=== PATIENT | female | born 1945 | race Two or more races ===

== ENCOUNTER 2018-10-09 23:09 | Emergency (ER) | payer OTHER ==
[~2018-10-09] VITALS: Ht 162.6 cm; Wt 61.2 kg
--- NOTE | 2018-10-09 23:15 | NUR ---
ED Nurse Note: Patient presents with complaints of recent fall and head trauma. Patient appears somewhat lethargic and unwilling to respond to questions.
[2018-10-09 23:33] VITALS: BP 135/94
--- NOTE | 2018-10-10 00:16 | NUR ---
ED Nurse Note: PATIENT SLEEPING COMFORTABLY.
--- NOTE | 2018-10-10 01:30 | NUR ---
ED Nurse Note: PATIENT SLEEPING, REPONSIVE TO TOUCH. PATIENT HAS NO S/S OF ACUTE DISTRESS.
--- NOTE | 2018-10-10 02:35 | Emergency Room Report ---
History of Present Illness General Chief Complaint: Head Injury Source: EMS Present Illness HPI Patient fell at her assisted living. Allegedly it was non-syncopal. She hit her head. She has a history of dementia and is unable to give further history. She will not answer if she has any pain. History of hypertension. History of dementia with cognitive impairment. Based on medications she is taking rifampin and pyridoxine. 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 Allergies: Coded Allergies: No Known Allergies (Unverified , 10/09/18) Patient History Limited by: medical condition Past Medical History: see triage record Social History: Denies: smoking, alcohol use, drug use Social History Narrative Assisted living Last Menstrual Period: Pt has no period anymore Now: No Reviewed Nursing Documentation: PMH: Agreed; PSxH: Agreed Nursing Documentation-PMH Hx Hypertension: Yes History Of Psychiatric Problem: Yes - Dementia Review of Systems All Other Systems: limited Physical Exam Vital Signs Date Time Temp Pulse Resp B/P (MAP) Pulse Ox O2 Delivery O2 Flow Rate FiO2 10/09/18 23:13 98.1 72 18 135/94 96 Room Air Sp02 EP Interpretation: reviewed, normal General Appearance: no apparent distress, alert, Chronically Ill Head: normocephalic, atraumatic Eyes: bilateral eye normal inspection, bilateral eye PERRL, bilateral eye EOMI ENT: hearing grossly normal, moist mucus membranes Neck: full range of motion, supple, no bony tend Respiratory: chest non-tender, lungs clear, normal breath sounds, no respiratory distress, speaking full sentences Cardiovascular #1: regular rate, rhythm Cardiovascular #2: 2+ radial (L) Gastrointestinal: normal inspection, non tender, soft Genitourinary: no CVA tenderness Musculoskeletal: back normal, digits/nails normal, normal range of motion, no calf tenderness, pelvis stable Neurologic: alert, motor strength/tone normal, DTRs symmetric, sensory intact, other - Not speaking Psychiatric: depressed affect Skin: no rash, other - No hematoma or lacerations Medical Decision Making Diagnostic Impression: Primary Impression: Acute head injury Qualified Codes: S09.90XA - Unspecified injury of head, initial encounter ER Course Patient presents after fall at assisted living. Differential includes head contusion, bleed, concussion amongst others. CT the head is indicated. She does not respond to having any other pain in her body. Her neck range of motion is full without any tenderness. CT of the head with involutional changes no bleed. Neurologic exam unchanged. Patient stable for outpatient observation and treatment. CT/MRI/US Diagnostic Results CT/MRI/US Diagnostic Results : Imaging Test Ordered: head Impression No intracranial pathology. Ethmoid sinusitis. Status: improved Disposition: ASSISTED LIVING Condition: Stable Scripts Acetaminophen (Tylenol) 325 Mg Tablet 650 MG ORAL Q6H PRN for Prn Pain/Headache/Temp > 101, #20 TAB 0 Refills Prov: Omero Richey MD 10/10/18 Referrals: NOT CHOSEN IPA/,REFERRING (PCP) Omero Richey MD Oct 10, 2018 02:35
[2018-10-10] MEDS ORDERED: TYLENOL325 MG ORAL (02:37)
[2018-10-10] MEDS ORDERED: NAMENDA10 MG ORAL (02:52)
[2018-10-10] MEDS ORDERED: OLANZAPINE2.5 MG ORAL (02:52)
[2018-10-10] MEDS ORDERED: RIFADIN300 MG ORAL (02:52)
[2018-10-10] MEDS ORDERED: DONEPEZIL HCL5 M2 ORAL (02:52)
[2018-10-10] MEDS ORDERED: NORVASC2.5 MG ORAL (02:52)
--- NOTE | 2018-10-10 02:57 | NUR ---
ED Nurse Note: PATIENT RESTING COMFORTABLY, NO S/S OF ACUTE DISTRESS. PATIENT IS SLEEPING.
[2018-10-10 02:59] VITALS: BP 135/94
--- NOTE | 2018-10-10 03:20 | NUR ---
ED Nurse Note: Sweetie cleared for discharge, awaiting transport back to facility ETA 0430.
--- NOTE | 2018-10-10 04:07 | NUR ---
ED Nurse Note: Report called to Maryse at [facility].
[2018-10-10 04:09] VITALS: BP 135/94
--- NOTE | 2018-10-10 11:28 | Diagnostic Imaging Report ---
Indications: Head trauma, altered level of consciousness Technique: Spiral acquisitions obtained through the brain. Angled axial and coronal 5 x 5 mm slices were reconstructed. Total dose length product 1284.6 mGycm. CTDI vol(s) 70.38 mGy. Dose reduction achieved using automated exposure control Comparison: None. Findings: There is age-related enlargement of the ventricles and extra-axial CSF spaces. No acute intracranial hemorrhage nor edema, mass effect, nor midline shift. Normal henao-white differentiation. Visualized orbits are unremarkable. There is minimal ethmoid sinus disease. The calvarium is intact Impression: Age-related volume loss Negative for acute intracranial bleed or mass effect Incidental finding ethmoid sinus disease This agrees with the preliminary interpretation provided overnight by [facility] teleradiology service. The CT scanner at [facility] is accredited by the [employer] and the scans are performed using protocols designed to limit radiation exposure to as low as reasonably achievable to attain images of sufficient resolution adequate for diagnostic evaluation.
[2018-10-10] MEDS ORDERED: ZYPREXA2.5 MG ORAL (20:25)
[2018-10-11] MEDS ORDERED: VITAMIN B-625 MG PO (05:35)
== END 2018-10-10 04:09 | disposition home or self-care (01) ==
LOC: EDBD 23:09 → EMR 23:27
DX: S09.90XA Unspecified injury of head, initial encounter (principal); W19.XXXA Unspecified fall, initial encounter; Y92.129 Unspecified place in nursing home as the place of occurrence of the external cause; I10 Essential (primary) hypertension; F03.90 Unspecified dementia, unspecified severity, without behavioral disturbance, psychotic disturbance, mood disturbance, and anxiety
CPT/HCPCS: 70450; 99284

== ENCOUNTER 2018-10-10 20:27 | Inpatient (IN) | payer OTHER ==
[~2018-10-10] VITALS: Ht 162.6 cm; Wt 50.6 kg
[~2018-10-10 20:27] MED LIST: DONEPEZIL HCL5 M2 ORAL; NAMENDA10 MG ORAL; NORVASC2.5 MG ORAL; OLANZAPINE2.5 MG ORAL; RIFADIN300 MG ORAL; TYLENOL325 MG ORAL; ZYPREXA2.5 MG ORAL
--- NOTE | 2018-10-10 20:30 | NUR ---
ED Nurse Note: pt brought in by ambulance for increased drowsiness from [facility], per daughter's statement, pt was here yesterday for s/p fall but noted pt more altered than usual. pt's daughter stated pt is normally awake and able to talk. pt AA&ox1, mexican speaking, skin warm and dry, resp even and unlabored on RA, noted increase lethargic, will cont monitor. -n/v/d. on bedrest.
--- NOTE | 2018-10-10 20:35 | NUR ---
ED Nurse Note: pt daughter states pt has also BLE (ankle) swelling since yesterday, states never had before, pt denies pain. no tenderness noted. noted swelling nonpitting Wong ankle. cms intact. cap refill <3sec, no sx injury, no open wound.
--- NOTE | 2018-10-10 21:07 | Emergency Room Report ---
History of Present Illness General Chief Complaint: General Complaint Source: Medical Record Present Illness HPI This is a 73-year-old female with history dementia. He presents with chief complaint altered mental status. Onset for about a week and getting worse. Sleepier. She was here yesterday for head injury. No nausea no vomiting. No fever or chills. No new trauma since yesterday. Yesterday she got out of bed and fell down on her knee and hit her head. There is no intracranial injury based on the CT scan yesterday. No other complaint. She is limited because of her dementia. History is from her daughter. Allergies: Coded Allergies: No Known Allergies (Unverified , 10/09/18) Patient History Past Medical History: see triage record, old chart reviewed Past Surgical History: other Pertinent Family History: none Social History: Denies: smoking Last Menstrual Period: n/a Now: No Immunizations: other Reviewed Nursing Documentation: PMH: Agreed; PSxH: Agreed Nursing Documentation-PMH Past Medical History: No History, Except For Hx Hypertension: Yes Review of Systems Constitutional: Reports: weakness Eye: Denies: eye pain, blurred vision ENT: Denies: ear pain, nose congestion, throat swelling Respiratory: Denies: cough, shortness of breath Cardiovascular: Denies: chest pain, palpitations Gastrointestinal: Denies: abdominal pain, diarrhea, nausea, vomiting Musculoskeletal: Denies: back pain, joint pain Skin: Denies: rash Neurological: Denies: headache, numbness Endocrine: Denies: increased thirst, increased urine Hematologic/Lymphatic: Denies: easy bruising All Other Systems: negative except mentioned in HPI Physical Exam Vital Signs Date Time Temp Pulse Resp B/P (MAP) Pulse Ox O2 Delivery O2 Flow Rate FiO2 10/10/18 20:18 97.3 70 18 114/66 98 Room Air vitals normal Sp02 EP Interpretation: reviewed, normal General Appearance: no apparent distress, alert, other - Weak appearing Head: normocephalic, atraumatic Eyes: bilateral eye PERRL, bilateral eye EOMI ENT: hearing grossly normal, normal pharynx Neck: full range of motion, supple, no meningismus Respiratory: chest non-tender, lungs clear, normal breath sounds Cardiovascular #1: regular rate, rhythm, no murmur Gastrointestinal: normal bowel sounds, non tender, no mass, no organomegaly, no bruit, non-distended Musculoskeletal: back normal, normal range of motion, swelling - Trace edema to the ankles Psychiatric: mood/affect normal Skin: warm/dry Medical Decision Making Diagnostic Impression: Primary Impression: Encephalopathy acute ER Course Patient with altered mental status. According to fpc, she's been more agitated. This may be worsening of her dementia. No evidence of infection. No evidence of delayed bleeding from her fall yesterday. Labs unremarkable. Urine showed no evidence of any infection. We'll admit versus transfer for further workup. Pt will be admitted here. I discussed case with Dr. Forrest who will admit. Lab Results Impression labs unremarkable CT/MRI/US Diagnostic Results CT/MRI/US Diagnostic Results : Imaging Test Ordered: CT head Impression no acute process per radiologist Last Vital Signs Date Time Temp Pulse Resp B/P (MAP) Pulse Ox O2 Delivery O2 Flow Rate FiO2 10/10/18 20:18 97.3 70 18 114/66 98 Room Air Status: unchanged Disposition: ADMITTED INPATIENT Condition: Serious Bautista Ward MD Oct 10, 2018 21:07
[2018-10-10 21:30] VITALS: BP 118/69
[2018-10-10 21:34] LABS: APPEARANCE,URINE CLEAR; BILIRUBIN, URINE NEGATIVE (NEGATIVE); GLUCOSE, URINE (UA) NEGATIVE (NEGATIVE); KETONES,URINE NEGATIVE (NEGATIVE); LEUKOCYTE ESTERASE ,URINE 1+ (NEGATIVE); NITRITE,URINE NEGATIVE (NEGATIVE); PH,URINE 6.5 (4.5-8.0); PROTEIN,URINE NEGATIVE (NEGATIVE); UROBILINOGEN,URINE NORMAL MG/DL (0.0-1.0)
[2018-10-10 21:35] LABS: EOSINOPHILS % (AUTO) 4.7 % (0.0-3.0); HEMATOCRIT 33.4 % (37.0-47.0); LYMPHOCYTES % (AUTO) 29.4 % (20.0-45.0); MEAN CORPUSCULAR VOLUME 89 FL (80-99); MONOCYTES % (AUTO) 10.6 % (1.0-10.0); NEUTROPHILS % (AUTO) 54.3 % (45.0-75.0); PLATELET COUNT 191 K/UL (150-450); RED BLOOD COUNT 3.76 M/UL (4.20-5.40); RED CELL DISTRIBUTION WIDTH 13.3 % (11.6-14.8); WHITE BLOOD COUNT 3.8 K/UL (4.8-10.8)
[2018-10-10 21:36] LABS: COLOR,URINE YELLOW
[2018-10-10 21:45] LABS: ANION GAP 8 mmol/L (5-15); BLOOD UREA NITROGEN 19 mg/dL (7-18); CALCIUM 8.6 MG/DL (8.5-10.1); CARBON DIOXIDE 26 MMOL/L (21-32); CHLORIDE 109 MMOL/L (98-107); CREATININE 0.6 MG/DL (0.55-1.30); POTASSIUM 3.8 MMOL/L (3.5-5.1); SODIUM 143 MMOL/L (136-145)
--- NOTE | 2018-10-10 21:50 | NUR ---
ED Nurse Note: Pt went to CT scan.
--- NOTE | 2018-10-10 21:55 | NUR ---
ED Nurse Note: spoke with nurse Shanika from [facility], per nurse statement, pt was sent to ED for psych eval, stated that she has been more confused than normal even with psych medication, increased drowsiness is normal for pt, stated psych med doesn't control pt's confused behavior. pt has hx dementia, only alert to herself. will cont monitor. ERMD notified.
--- NOTE | 2018-10-10 23:00 | NUR ---
ED Nurse Note: report given to RN ravi and endorsed care, pt resting comfortably in bed, arousable to light shake and name, vss, resp even and unlabored on RA, will cont monitor.
--- NOTE | 2018-10-10 23:18 | NUR ---
ED Nurse Note: daughter: NIKOLAY phone number: [phone]
--- NOTE | 2018-10-11 00:34 | NUR ---
ED Nurse Note: Received Dr Forrest's phone orders, all orders carry out.
[2018-10-11 02:00] VITALS: BP 122/72
--- NOTE | 2018-10-11 02:30 | NUR ---
ED Nurse Note: Pt admit to 4E 415-1. Pt is AO x 2 times, VSS, on room air sleeping. Report and belongings given to MICHELLE Iverson.
--- NOTE | 2018-10-11 02:40 | NUR ---
NURSE NOTES: Pt received in stable condition. Appeared restless and agitated, fidgeting with IV and blankets. New IV line just placed- right wrist 20 g intact and patent. Covered with kerlix to prevent removal by pt. Pt is alert but confused, only oriented to self/name. Pt was transferred from [facility] to [facility]. Bed is locked in lowest position, side rails up x2. Pt is in room close to nursing station due to confusion and risk to pull out lines. Respirations are even and unlabored on room air. Will continue to monitor pt and continue admission to unit. Pt has hx of dementia and is unable to reorient.
[2018-10-11 03:10] VITALS: BP 128/59
[2018-10-11] MEDS ORDERED: VITAMIN B-625 MG PO (05:35)
[2018-10-11] MEDS: D5 1/2NS 1,000 ML IV SCH ×2 (05:37→14:05)
[2018-10-11 06:45] LABS: BASOPHILS % (AUTO) 1.1 % (0.0-2.0); EOSINOPHILS % (AUTO) 2.5 % (0.0-3.0); HEMATOCRIT 34.2 % (37.0-47.0); LYMPHOCYTES % (AUTO) 22.8 % (20.0-45.0); MEAN CORPUSCULAR VOLUME 89 FL (80-99); MONOCYTES % (AUTO) 8.1 % (1.0-10.0); NEUTROPHILS % (AUTO) 65.6 % (45.0-75.0); PLATELET COUNT 188 K/UL (150-450); RED BLOOD COUNT 3.84 M/UL (4.20-5.40); RED CELL DISTRIBUTION WIDTH 13.3 % (11.6-14.8); WHITE BLOOD COUNT 5.2 K/UL (4.8-10.8)
[2018-10-11 07:18] LABS: ANION GAP 5 mmol/L (5-15); BLOOD UREA NITROGEN 12 mg/dL (7-18); CALCIUM 8.3 MG/DL (8.5-10.1); CARBON DIOXIDE 27 MMOL/L (21-32); CHLORIDE 110 MMOL/L (98-107); CREATININE 0.5 MG/DL (0.55-1.30); PHOSPHORUS 2.7 MG/DL (2.5-4.9); POTASSIUM 3.6 MMOL/L (3.5-5.1); SODIUM 142 MMOL/L (136-145)
--- NOTE | 2018-10-11 07:39 | NUR ---
HAND-OFF: Report given to Drea MARTINEZ.
[2018-10-11 08:09] VITALS: BP 122/57
--- NOTE | 2018-10-11 08:49 | NUR ---
NURSE NOTES: Patient is alert to name. Patient keeps rearranging her blanket saying that that is the good one. Bed alarm is on, patient is near nurse's station. Bed is locked and in lowest position, side rails are up X2. Will continue to monitor.
[2018-10-11] MEDS ORDERED: Donepezil 5mg Tab ORAL SCH (09:00)
[2018-10-11] MEDS ORDERED: Memantine 10mg tab ORAL SCH (09:00)
--- NOTE | 2018-10-11 09:46 | NUR ---
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 to ER CC:General Complaint SI:Altered Mental Status VS: BP 114/66, P 70, Temp. 97.3, Resp. 18, O2Sat 98 Room Air WBC 3.8, RBC 3.76, Hgb 11.0, Hct 33.4, MPV 5.9, Placer% 10.6, Eos% 4.7 IS:NS IV x1L MED/SURG DC Plan return to [facility] Addendum: 10/11/18 at 0958 by Josiane Santa LVN DC Plan return to [facility]
--- NOTE | 2018-10-11 10:47 | Consultation ---
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 the pt was admitted for more confusion and agitation. the pt was unable to follow commands. she is Armenian speaking. the pt is paranoid and not allowing the [employer] tech perform the test. the pt is easily agitated. the pt has cognitive impairment. the pt came in on Aricept and Namenda. the pt is not violent however coming out of beds and attempting to leave. The pt is not suicidal. the pt has waxing and waning of consciousness. Allergies: Coded Allergies: No Known Allergies (Unverified , 10/09/18) Medication History Scheduled Amlodipine Besylate (Norvasc), 2.5 MG ORAL DAILY, (Reported) Donepezil Hcl* (Donepezil Hcl*), 5 MG ORAL HS, (Reported) Memantine Hcl* (Namenda*), 10 MG ORAL TWICE A DAY, (Reported) Olanzapine (Olanzapine), 10 MG ORAL BEDTIME, (Reported) Pyridoxine Hcl (Vitamin B-6), 25 MG PO DAILY, (Reported) Rifampin (Rifadin), 600 MG ORAL DAILY, (Reported) Scheduled PRN Acetaminophen (Tylenol), 650 MG ORAL Q6H PRN for Prn Pain/Headache/Temp > 101 Patient History Limited by: medical condition Healthcare decision maker Resuscitation status Advanced Directive on File No Past Medical/Surgical History Past Medical/Surgical History: (1) Encephalopathy acute Review of Systems Psychiatric: Reports: prior hx, anxiety, depressed feelings, emotional problems Physical Exam General Appearance: WD/WN, no apparent distress, alert, confused, agitated Last 24 Hour Vital Signs Date Time Temp Pulse Resp B/P (MAP) Pulse Ox O2 Delivery O2 Flow Rate FiO2 10/11/18 10:10 78 122/57 10/11/18 08:09 98.4 78 18 122/57 (78) 96 10/11/18 03:35 Room Air 10/11/18 03:32 Room Air 10/11/18 03:10 98.2 64 18 128/59 (82) 98 10/11/18 02:30 98.5 84 18 118/69 98 Room Air 10/11/18 02:00 98.1 84 18 122/72 100 Room Air 10/10/18 21:30 98.5 74 18 118/69 98 Room Air 10/10/18 20:30 70 18 Room Air 10/10/18 20:18 97.3 70 18 114/66 98 Room Air Intake and Output 10/10/18 10/11/18 19:00 07:00 Intake Total 75 ml Balance 75 ml Intake IV Total 75 ml # Voids 1 Laboratory Tests Test 10/10/18 21:03 10/11/18 06:21 White Blood Count 3.8 K/UL (4.8-10.8) L 5.2 K/UL (4.8-10.8) Red Blood Count 3.76 M/UL (4.20-5.40) L 3.84 M/UL (4.20-5.40) L Hemoglobin 11.0 G/DL (12.0-16.0) L 11.0 G/DL (12.0-16.0) L Hematocrit 33.4 % (37.0-47.0) L 34.2 % (37.0-47.0) L Mean Corpuscular Volume 89 FL (80-99) 89 FL (80-99) Mean Corpuscular Hemoglobin 29.2 PG (27.0-31.0) 28.8 PG (27.0-31.0) Mean Corpuscular Hemoglobin Concent 33.0 G/DL (32.0-36.0) 32.3 G/DL (32.0-36.0) Red Cell Distribution Width 13.3 % (11.6-14.8) 13.3 % (11.6-14.8) Platelet Count 191 K/UL (150-450) 188 K/UL (150-450) Mean Platelet Volume 5.9 FL (6.5-10.1) L 6.4 FL (6.5-10.1) L Neutrophils (%) (Auto) 54.3 % (45.0-75.0) 65.6 % (45.0-75.0) Lymphocytes (%) (Auto) 29.4 % (20.0-45.0) 22.8 % (20.0-45.0) Monocytes (%) (Auto) 10.6 % (1.0-10.0) H 8.1 % (1.0-10.0) Eosinophils (%) (Auto) 4.7 % (0.0-3.0) H 2.5 % (0.0-3.0) Basophils (%) (Auto) 1.0 % (0.0-2.0) 1.1 % (0.0-2.0) Urine Color Yellow Urine Appearance Clear Urine pH 6.5 (4.5-8.0) Urine Specific [place] 1.015 (1.005-1.035) Urine Protein Negative (NEGATIVE) Urine Glucose (UA) Negative (NEGATIVE) Urine Ketones Negative (NEGATIVE) Urine Blood Negative (NEGATIVE) Urine Nitrite Negative (NEGATIVE) Urine Bilirubin Negative (NEGATIVE) Urine Urobilinogen Normal MG/DL (0.0-1.0) Urine Leukocyte Esterase 1+ (NEGATIVE) H Urine RBC 0-2 /HPF (0 - 2) Urine WBC 0-2 /HPF (0 - 2) Urine Squamous Epithelial Cells None /LPF (NONE/OCC) Urine Bacteria None /HPF (NONE) Sodium Level 143 MMOL/L (136-145) 142 MMOL/L (136-145) Potassium Level 3.8 MMOL/L (3.5-5.1) 3.6 MMOL/L (3.5-5.1) Chloride Level 109 MMOL/L (98-107) H 110 MMOL/L (98-107) H Carbon Dioxide Level 26 MMOL/L (21-32) 27 MMOL/L (21-32) Anion Gap 8 mmol/L (5-15) 5 mmol/L (5-15) Blood Urea Nitrogen 19 mg/dL (7-18) H 12 mg/dL (7-18) Creatinine 0.6 MG/DL (0.55-1.30) 0.5 MG/DL (0.55-1.30) L Estimat Glomerular Filtration Rate mL/min (>60) mL/min (>60) Glucose Level 116 MG/DL (74-106) H 102 MG/DL (74-106) Calcium Level 8.6 MG/DL (8.5-10.1) 8.3 MG/DL (8.5-10.1) L Troponin I 0.003 ng/mL (0.000-0.056) Phosphorus Level 2.7 MG/DL (2.5-4.9) Magnesium Level 2.0 MG/DL (1.8-2.4) Height (Feet): 5 Height (Inches): 4.00 Weight (Pounds): 130 Medications Current Medications Medications (Trade) Dose Ordered Sig/Elton Route PRN Reason Start Time Stop Time Status Last Admin Dose Admin Acetaminophen (Tylenol) 650 mg Q6H PRN ORAL Prn Pain/Headache/Temp > 101 10/11/18 00:30 11/10/18 00:29 Amlodipine Besylate (Norvasc) 2.5 mg DAILY ORAL 10/11/18 09:00 11/10/18 08:59 10/11/18 10:10 Dextrose/Sodium Chloride 1,000 ml @ 75 mls/hr [id number] IV 10/11/18 00:45 11/10/18 00:44 10/11/18 05:37 Heparin Sodium (Porcine) (Heparin 5000 units/ml) 5,000 units EVERY 8 HOURS SUBQ 10/11/18 14:00 11/10/18 13:59 Assessment/Plan Problem List: (1) Acute metabolic encephalopathy ICD Codes: G93.41 - Metabolic encephalopathy SNOMED: [id number], [id number] Status: not improved, unchanged Assessment/Plan Zyprexa 2.5mg po bid Zyprexa 2.5mg x 1time Haldol Im prn Ativan IM prn the pt lacks capacity to make decisions. Abby Duffy MD Oct 11, 2018 10:47
[2018-10-11] MEDS ORDERED: LORazepam Inj 2mg/ml 1ml IM PRN ×2 (11:00→19:00)
--- NOTE | 2018-10-11 11:04 | Diagnostic Imaging Report ---
Indications: Altered mental status Technique: Spiral acquisitions obtained through the brain. Angled axial and coronal 5 x 5 mm slices were reconstructed. Total dose length product 1375.87 mGycm. CTDI vol(s) 70.38 mGy. Dose reduction achieved using automated exposure control Comparison: 10/09/2018 Findings: Is again demonstrated is age-related enlargement of the ventricles and extra axial CSF spaces. Tiny lacunar infarct is seen within the right frontal periventricular deep white matter, not well seen previously but does not appear acute. Possible tiny old lacunar infarct in the posterior right internal capsule. No acute intracranial hemorrhage nor edema, mass effect, nor midline shift. The ethmoid sinuses demonstrate minimal mucosal disease. The calvarium is intact. The mastoids are clear. The orbits are unremarkable. Impression: Negative for acute intracranial bleed or mass effect Chronic and age-related changes, unchanged over one day Stable sinus disease This agrees with the preliminary interpretation provided overnight by [facility] service. The CT scanner at [facility] is accredited by the [employer] and the scans are performed using protocols designed to limit radiation exposure to as low as reasonably achievable to attain images of sufficient resolution adequate for diagnostic evaluation.
[2018-10-11 12:06] VITALS: BP 138/69
[2018-10-11] MEDS: Heparin 5000 units/ml inj SUBQ SCH ×2 (14:00→20:59)
[2018-10-11 16:00] VITALS: BP 97/49
--- NOTE | 2018-10-11 16:29 | Consultation ---
History of Present Illness General Date patient seen: Oct 11, 2018 Chief Complaint: General Complaint Present Illness HPI 73-year-old female with history dementia presents with chief complaint altered mental status for about a week and getting worse. She got out of bed and fell down on her knee and hit her head in the long term. There is no intracranial injury based on the CT scan. No other complaint. She is limited because of her acute delirium. Allergies: Coded Allergies: No Known Allergies (Unverified , 10/09/18) Medication History Scheduled Amlodipine Besylate (Norvasc), 2.5 MG ORAL DAILY, (Reported) Donepezil Hcl* (Donepezil Hcl*), 5 MG ORAL HS, (Reported) Memantine Hcl* (Namenda*), 10 MG ORAL TWICE A DAY, (Reported) Olanzapine (Olanzapine), 10 MG ORAL BEDTIME, (Reported) Pyridoxine Hcl (Vitamin B-6), 25 MG PO DAILY, (Reported) Rifampin (Rifadin), 600 MG ORAL DAILY, (Reported) Scheduled PRN Acetaminophen (Tylenol), 650 MG ORAL Q6H PRN for Prn Pain/Headache/Temp > 101 Patient History Healthcare decision maker Resuscitation status Advanced Directive on File No Past Medical/Surgical History Past Medical/Surgical History: (1) History of dementia (2) History of hypertension (3) Alzheimer's dementia Review of Systems All Other Systems: negative except mentioned in HPI Physical Exam General Appearance: cachetic Lines, tubes and drains: peripheral HEENT: normocephalic, atraumatic Neck: non-tender, normal alignment Respiratory/Chest: chest wall non-tender, lungs clear Breasts: no masses Cardiovascular/Chest: normal peripheral pulses Abdomen: normal bowel sounds, non tender Genitourinary/Rectal: normal genital exam Extremities: normal range of motion, non-tender Skin Exam: normal pigmentation 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 Last 24 Hour Vital Signs Date Time Temp Pulse Resp B/P (MAP) Pulse Ox O2 Delivery O2 Flow Rate FiO2 10/11/18 12:06 97.3 66 18 138/69 (92) 98 10/11/18 10:10 78 122/57 10/11/18 08:30 Room Air 10/11/18 08:09 98.4 78 18 122/57 (78) 96 10/11/18 03:35 Room Air 10/11/18 03:32 Room Air 10/11/18 03:10 98.2 64 18 128/59 (82) 98 10/11/18 02:30 98.5 84 18 118/69 98 Room Air 10/11/18 02:00 98.1 84 18 122/72 100 Room Air 10/10/18 21:30 98.5 74 18 118/69 98 Room Air 10/10/18 20:30 70 18 Room Air 10/10/18 20:18 97.3 70 18 114/66 98 Room Air Intake and Output 10/10/18 10/11/18 19:00 07:00 Intake Total 75 ml Balance 75 ml Intake IV Total 75 ml # Voids 1 Laboratory Tests Test 10/10/18 21:03 10/11/18 06:21 White Blood Count 3.8 K/UL (4.8-10.8) L 5.2 K/UL (4.8-10.8) Red Blood Count 3.76 M/UL (4.20-5.40) L 3.84 M/UL (4.20-5.40) L Hemoglobin 11.0 G/DL (12.0-16.0) L 11.0 G/DL (12.0-16.0) L Hematocrit 33.4 % (37.0-47.0) L 34.2 % (37.0-47.0) L Mean Corpuscular Volume 89 FL (80-99) 89 FL (80-99) Mean Corpuscular Hemoglobin 29.2 PG (27.0-31.0) 28.8 PG (27.0-31.0) Mean Corpuscular Hemoglobin Concent 33.0 G/DL (32.0-36.0) 32.3 G/DL (32.0-36.0) Red Cell Distribution Width 13.3 % (11.6-14.8) 13.3 % (11.6-14.8) Platelet Count 191 K/UL (150-450) 188 K/UL (150-450) Mean Platelet Volume 5.9 FL (6.5-10.1) L 6.4 FL (6.5-10.1) L Neutrophils (%) (Auto) 54.3 % (45.0-75.0) 65.6 % (45.0-75.0) Lymphocytes (%) (Auto) 29.4 % (20.0-45.0) 22.8 % (20.0-45.0) Monocytes (%) (Auto) 10.6 % (1.0-10.0) H 8.1 % (1.0-10.0) Eosinophils (%) (Auto) 4.7 % (0.0-3.0) H 2.5 % (0.0-3.0) Basophils (%) (Auto) 1.0 % (0.0-2.0) 1.1 % (0.0-2.0) Urine Color Yellow Urine Appearance Clear Urine pH 6.5 (4.5-8.0) Urine Specific [place] 1.015 (1.005-1.035) Urine Protein Negative (NEGATIVE) Urine Glucose (UA) Negative (NEGATIVE) Urine Ketones Negative (NEGATIVE) Urine Blood Negative (NEGATIVE) Urine Nitrite Negative (NEGATIVE) Urine Bilirubin Negative (NEGATIVE) Urine Urobilinogen Normal MG/DL (0.0-1.0) Urine Leukocyte Esterase 1+ (NEGATIVE) H Urine RBC 0-2 /HPF (0 - 2) Urine WBC 0-2 /HPF (0 - 2) Urine Squamous Epithelial Cells None /LPF (NONE/OCC) Urine Bacteria None /HPF (NONE) Sodium Level 143 MMOL/L (136-145) 142 MMOL/L (136-145) Potassium Level 3.8 MMOL/L (3.5-5.1) 3.6 MMOL/L (3.5-5.1) Chloride Level 109 MMOL/L (98-107) H 110 MMOL/L (98-107) H Carbon Dioxide Level 26 MMOL/L (21-32) 27 MMOL/L (21-32) Anion Gap 8 mmol/L (5-15) 5 mmol/L (5-15) Blood Urea Nitrogen 19 mg/dL (7-18) H 12 mg/dL (7-18) Creatinine 0.6 MG/DL (0.55-1.30) 0.5 MG/DL (0.55-1.30) L Estimat Glomerular Filtration Rate mL/min (>60) mL/min (>60) Glucose Level 116 MG/DL (74-106) H 102 MG/DL (74-106) Calcium Level 8.6 MG/DL (8.5-10.1) 8.3 MG/DL (8.5-10.1) L Troponin I 0.003 ng/mL (0.000-0.056) Phosphorus Level 2.7 MG/DL (2.5-4.9) Magnesium Level 2.0 MG/DL (1.8-2.4) Height (Feet): 5 Height (Inches): 4.00 Weight (Pounds): 130 Medications Current Medications Medications (Trade) Dose Ordered Sig/Elton Route PRN Reason Start Time Stop Time Status Last Admin Dose Admin Acetaminophen (Tylenol) 650 mg Q6H PRN ORAL Prn Pain/Headache/Temp > 101 10/11/18 00:30 11/10/18 00:29 Amlodipine Besylate (Norvasc) 2.5 mg DAILY ORAL 10/11/18 09:00 11/10/18 08:59 10/11/18 10:10 Dextrose/Sodium Chloride 1,000 ml @ 75 mls/hr [id number] IV 10/11/18 00:45 11/10/18 00:44 10/11/18 05:37 Haloperidol Lactate (Haldol) 5 mg Q6H PRN IM Agitation 10/11/18 11:00 11/10/18 10:59 Heparin Sodium (Porcine) (Heparin 5000 units/ml) 5,000 units EVERY 8 HOURS SUBQ 10/11/18 14:00 11/10/18 13:59 Olanzapine (ZyPREXA) 2.5 mg BEDTIME ONCE ORAL 10/11/18 21:00 10/11/18 21:01 Olanzapine (ZyPREXA) 5 mg BID ORAL 10/11/18 10:45 11/10/18 10:44 10/11/18 11:05 Assessment/Plan Problem List: (1) Acute delirium ICD Codes: R41.0 - Disorientation, unspecified SNOMED: 6073960, 8131128 (2) Encephalopathy acute ICD Codes: G93.40 - Encephalopathy, unspecified SNOMED: 92591929, 982581930 (3) History of hypertension ICD Codes: Z86.79 - Personal history of other diseases of the circulatory system SNOMED: 545580358 (4) Alzheimer's dementia ICD Codes: G30.9 - Alzheimer's disease, unspecified; F02.80 - Dementia in other diseases classified elsewhere without behavioral disturbance SNOMED: 60282688 Assessment/Plan titrate psych meds no underlying sepsis or UTI unknown cause of current episode dc ativan for now, symptomatic treatment dvt prophylaxis. Elmer Little MD Oct 11, 2018 16:29
--- NOTE | 2018-10-11 18:26 | History & Physical ---
History and Physical History & Physicial Perfecto Forrest MD Oct 11, 2018 18:26
--- NOTE | 2018-10-11 19:09 | NUR ---
HAND-OFF: Report given to MICHELLE Joshi.
--- NOTE | 2018-10-11 19:37 | NUR ---
NURSE NOTES: Patient in bed, asleep, arousable to name and to touch. Confused. Skin is warm and dry to touch. No s/s of pain or discomfort noted. Respiration is even and unlabored, room air. Abdomen is soft and non distended. Bed in low and locked position. Provided saef environment. Call light is at bedside. Will continue plan of care.
[2018-10-11 19:53] VITALS: BP 97/51
--- NOTE | 2018-10-11 20:59 | NUR ---
NURSE NOTES: Patient in bed, asleep. Attempted to wake up patient to give PO medication, patient keeps going back to sleep. Unable to give medication.
[2018-10-11] MEDS ORDERED: OLANZapine 2.5mg tab ORAL ONE (21:00)
--- NOTE | 2018-10-11 23:15 | History and Physical Report ---
DATE OF ADMISSION: 10/10/2018 CHIEF COMPLAINT: Altered mental status. HISTORY OF PRESENT ILLNESS: This is a 73-year-old [place] female with past medical history significant for hypertension and Alzheimer's dementia, who has [facility] after she was noted to be more confused and agitated. The patient is unable to follow commands and the patient had a paranoia and not able to give history. She has been easily agitated with cognitive impairment. She has been today treated with Aricept and Namenda and she is not violent. No suicidal or homicidal ideation. Shortly after initial evaluation in the emergency, the patient was admitted to the hospital with altered mental status, possibly due to toxic metabolic encephalopathy as a result of the medication induced. PAST MEDICAL HISTORY AND PAST SURGICAL HISTORY: As above. History of hypertension and Alzheimer's dementia with agitation. MEDICATIONS: Please refer to medication reconciliation. ALLERGIES: No known drug allergies. SOCIAL HISTORY: long term resident. No smoking, alcohol, or drugs. FAMILY HISTORY: Noncontributory. REVIEW OF SYSTEMS: Very limited secondary to the patient's status. History is mostly taken from the ER chart. PHYSICAL EXAMINATION: VITAL SIGNS: On admission, temperature 97.3, pulse of 70, respirations 18, and blood pressure 114/66. GENERAL: The patient is awake and arousable, however, cannot follow commands. HEAD AND NECK: Pupils are equal to light and anicteric. Neck was supple. No JVD. LUNGS: No wheeze or rhonchi. Decreased air in the bases. Poor inspiratory effort. HEART: S1 and S2. Distant heart sounds. No murmur or gallops. ABDOMEN: Soft, nondistended, and nontender. Positive bowel sounds. EXTREMITIES: No cyanosis, clubbing, or edema. NEUROLOGIC: Very limited secondary to the patient's status. The patient is moving all the extremities spontaneously, however, cannot follow commands. LABORATORY AND DIAGNOSTIC DATA: On admission from the ER, WBC of 3.8, hemoglobin 11, hematocrit 33, and platelets 191,000. Sodium 143, potassium 3.8, chloride 109, bicarbonate 26, BUN 19, and creatinine 0.6, and glucose is 116. Troponin 0.003 and calcium is 8.6. Urinalysis, essentially unremarkable, +1 leukocyte esterase, otherwise negative WBC, negative RBC, and negative nitrite. ASSESSMENT: 1. Altered mental status, most likely secondary to toxic encephalopathy as a result of medication induced. 2. Hypertension. 3. Severe agitation in the past. 4. Mild dehydration with prerenal azotemia. PLAN: 1. Admit the patient to medical floor. 2. We will follow up with psychiatry consultation with Dr. Abby Duffy. 3. We will follow up with Dr. Anabel chavez. 4. IV hydration. 5. Code status is Full Code at this time. 6. We will monitor patient with one-to-one sitter. 7. DVT prophylaxis, heparin subcutaneous. Perfecto Forrest M.D. DR: WILLY JOB#: [id number] CC:
[2018-10-12] VITALS: BP 100/64
--- NOTE | 2018-10-12 01:00 | NUR ---
NURSE NOTES: Patient is awake, confused. Noted with increased anxiety. Attempted to calm patient, unsuccessful, will give PO PRN medication as ordered.
[2018-10-12] MEDS: LORazepam 1mg tab ORAL PRN ×3 (01:02→23:23)
[2018-10-12] MEDS: D5 1/2NS 1,000 ML IV SCH ×2 (03:30→17:25)
[2018-10-12 04:01] VITALS: BP 139/69
--- NOTE | 2018-10-12 05:39 | NUR ---
NURSE NOTES: Patient attempting to get up from bed, uncooperative, confused. Attempted to reorient patient, patient still not following commands.
[2018-10-12] MEDS: Haloperidol 5mg/ml Inj IM PRN ×2 (05:45→11:23)
[2018-10-12] MEDS: Heparin 5000 units/ml inj SUBQ SCH ×3 (05:48→21:19)
--- NOTE | 2018-10-12 07:12 | NUR ---
HAND-OFF: Report given to MICHELLE Ochoa.
--- NOTE | 2018-10-12 07:18 | NUR ---
NURSE NOTES: Patient alert x2, confused, try to get out of bed, sitter in room for bed #2 and monitor also this patient; on room air, no sign of distress and shortness of breath; no sign of chest pain; IV R-FA fluid is running, side rails up, breaks engaged; bed alarm on. Call light within reach; will keep monitoring.
[2018-10-12 07:36] VITALS: BP 129/61
[2018-10-12 08:00] LABS: BASOPHILS % (AUTO) 0.9 % (0.0-2.0); EOSINOPHILS % (AUTO) 1.3 % (0.0-3.0); HEMOGLOBIN 11.6 G/DL (12.0-16.0); MEAN CORPUSCULAR VOLUME 88 FL (80-99); MONOCYTES % (AUTO) 6.6 % (1.0-10.0); NEUTROPHILS % (AUTO) 70.3 % (45.0-75.0); PLATELET COUNT 199 K/UL (150-450); RED CELL DISTRIBUTION WIDTH 13.4 % (11.6-14.8); WHITE BLOOD COUNT 4.4 K/UL (4.8-10.8)
[2018-10-12 08:41] LABS: ALANINE AMINOTRANSFERASE 23 U/L (12-78); ALBUMIN 2.8 G/DL (3.4-5.0); ALBUMIN/GLOBULIN RATIO 0.8 (1.0-2.7); ALKALINE PHOSPHATASE 75 U/L (46-116); ANION GAP 10 mmol/L (5-15); ASPARTATE AMINO TRANSFERASE 18 U/L (15-37); BILIRUBIN,TOTAL 0.2 MG/DL (0.2-1.0); BLOOD UREA NITROGEN 7 mg/dL (7-18); CALCIUM 8.8 MG/DL (8.5-10.1); CARBON DIOXIDE 24 MMOL/L (21-32); CHLORIDE 108 MMOL/L (98-107); CREATININE 0.5 MG/DL (0.55-1.30); PHOSPHORUS 2.8 MG/DL (2.5-4.9); POTASSIUM 3.4 MMOL/L (3.5-5.1); SODIUM 142 MMOL/L (136-145)
--- NOTE | 2018-10-12 11:12 | General Progress Note ---
Assessment/Plan Problem List: (1) Acute metabolic encephalopathy ICD Codes: G93.41 - Metabolic encephalopathy SNOMED: 46411054, 568802256 Status: stable Assessment/Plan Zyprexa 2.5mg po bid Zyprexa 2.5mg x 1time Haldol Im prn Ativan IM prn the pt lacks capacity to make decisions. Subjective Allergies: Coded Allergies: No Known Allergies (Unverified , 10/09/18) Subjective more agitated cont to be confused memory impairment not following command Objective Last 24 Hour Vital Signs Date Time Temp Pulse Resp B/P (MAP) Pulse Ox O2 Delivery O2 Flow Rate FiO2 10/12/18 09:00 Room Air 10/12/18 08:40 77 129/61 10/12/18 07:36 97.9 77 18 129/61 (83) 96 10/12/18 04:01 97.7 70 20 139/69 (92) 96 10/12/18 00:00 98.0 60 20 100/64 (76) 96 10/11/18 21:00 Room Air 10/11/18 19:53 97.9 62 18 97/51 (66) 97 10/11/18 16:00 97.9 64 20 97/49 (65) 95 10/11/18 12:06 97.3 66 18 138/69 (92) 98 Intake and Output 10/11/18 10/12/18 19:00 07:00 Intake Total 555 ml 300 ml Balance 555 ml 300 ml Intake Oral 480 ml IV Total 75 ml 300 ml # Voids 2 # Bowel Movements 1 Laboratory Tests 10/12/18 06:25: White Blood Count 4.4L, Red Blood Count 4.10L, Hemoglobin 11.6L, Hematocrit 36.0L, Mean Corpuscular Volume 88, Mean Corpuscular Hemoglobin 28.4, Mean Corpuscular Hemoglobin Concent 32.4, Red Cell Distribution Width 13.4, Platelet Count 199, Mean Platelet Volume 6.9, Neutrophils (%) (Auto) 70.3, Lymphocytes (% ) (Auto) 21.0, Monocytes (%) (Auto) 6.6, Eosinophils (%) (Auto) 1.3, Basophils ( %) (Auto) 0.9, Sodium Level 142, Potassium Level 3.4L, Chloride Level 108H, Carbon Dioxide Level 24, Anion Gap 10, Blood Urea Nitrogen 7, Creatinine 0.5L, Estimat Glomerular Filtration Rate , Glucose Level 92, Calcium Level 8.8, Phosphorus Level 2.8, Magnesium Level 2.0, Total Bilirubin 0.2, Aspartate Amino Transf (AST/SGOT) 18, Alanine Aminotransferase (ALT/SGPT) 23, Alkaline Phosphatase 75, Troponin I 0.000, Total Protein 6.1L, Albumin 2.8L, Globulin 3.3 , Albumin/Globulin Ratio 0.8L Height (Feet): 5 Height (Inches): 4.00 Weight (Pounds): 130 General Appearance: alert, moderate distress, agitated Neurologic: disoriented Abby Duffy MD Oct 12, 2018 11:12
[2018-10-12 11:30] VITALS: BP 136/59
--- NOTE | 2018-10-12 11:59 | Pulmonology Progress Note ---
Assessment/Plan Problems: (1) Acute delirium (2) Encephalopathy acute (3) History of hypertension (4) Alzheimer's dementia Assessment/Plan improving asymptomatic pt/ot symptomatic treatment f/u psych recommendations Subjective ROS Limited/Unobtainable: No Constitutional: Reports: no symptoms HEENT: Repors: no symptoms Respiratory: Reports: no symptoms Allergies: Coded Allergies: No Known Allergies (Unverified , 10/09/18) Objective Last 24 Hour Vital Signs Date Time Temp Pulse Resp B/P (MAP) Pulse Ox O2 Delivery O2 Flow Rate FiO2 10/12/18 11:30 98.1 77 18 136/59 (84) 95 10/12/18 09:00 Room Air 10/12/18 08:40 77 129/61 10/12/18 07:36 97.9 77 18 129/61 (83) 96 10/12/18 04:01 97.7 70 20 139/69 (92) 96 10/12/18 00:00 98.0 60 20 100/64 (76) 96 10/11/18 21:00 Room Air 10/11/18 19:53 97.9 62 18 97/51 (66) 97 10/11/18 16:00 97.9 64 20 97/49 (65) 95 10/11/18 12:06 97.3 66 18 138/69 (92) 98 Intake and Output 10/11/18 10/12/18 19:00 07:00 Intake Total 555 ml 300 ml Balance 555 ml 300 ml Intake Oral 480 ml IV Total 75 ml 300 ml # Voids 2 # Bowel Movements 1 General Appearance: WD/WN HEENT: normocephalic, PERRL Respiratory/Chest: chest wall non-tender, lungs clear Breasts: no masses Cardiovascular: normal peripheral pulses, regularly irregular, no JVD Abdomen: soft, non tender Genitourinary: normal external genitalia Skin: no rash Laboratory Tests 10/12/18 06:25: White Blood Count 4.4L, Red Blood Count 4.10L, Hemoglobin 11.6L, Hematocrit 36.0L, Mean Corpuscular Volume 88, Mean Corpuscular Hemoglobin 28.4, Mean Corpuscular Hemoglobin Concent 32.4, Red Cell Distribution Width 13.4, Platelet Count 199, Mean Platelet Volume 6.9, Neutrophils (%) (Auto) 70.3, Lymphocytes (% ) (Auto) 21.0, Monocytes (%) (Auto) 6.6, Eosinophils (%) (Auto) 1.3, Basophils ( %) (Auto) 0.9, Sodium Level 142, Potassium Level 3.4L, Chloride Level 108H, Carbon Dioxide Level 24, Anion Gap 10, Blood Urea Nitrogen 7, Creatinine 0.5L, Estimat Glomerular Filtration Rate , Glucose Level 92, Calcium Level 8.8, Phosphorus Level 2.8, Magnesium Level 2.0, Total Bilirubin 0.2, Aspartate Amino Transf (AST/SGOT) 18, Alanine Aminotransferase (ALT/SGPT) 23, Alkaline Phosphatase 75, Troponin I 0.000, Total Protein 6.1L, Albumin 2.8L, Globulin 3.3 , Albumin/Globulin Ratio 0.8L Current Medications Medications (Trade) Dose Ordered Sig/Elton Route PRN Reason Start Time Stop Time Status Last Admin Dose Admin Acetaminophen (Tylenol) 650 mg Q6H PRN ORAL Prn Pain/Headache/Temp > 101 10/11/18 00:30 11/10/18 00:29 Amlodipine Besylate (Norvasc) 2.5 mg DAILY ORAL 10/11/18 09:00 11/10/18 08:59 10/12/18 08:40 Dextrose/Sodium Chloride 1,000 ml @ 75 mls/hr [id number] IV 10/11/18 00:45 11/10/18 00:44 10/12/18 03:30 Haloperidol Lactate (Haldol) 5 mg Q6H PRN IM Agitation 10/11/18 11:00 11/10/18 10:59 10/12/18 11:23 Heparin Sodium (Porcine) (Heparin 5000 units/ml) 5,000 units EVERY 8 HOURS SUBQ 10/11/18 14:00 11/10/18 13:59 10/12/18 05:48 Lorazepam (Ativan 2mg/ml 1ml) 1 mg Q4H PRN IM For Anxiety 10/11/18 19:00 10/18/18 18:59 Lorazepam (Ativan) 2 mg Q6H PRN ORAL For Anxiety 10/12/18 12:00 10/19/18 11:59 Olanzapine (ZyPREXA) 5 mg Q8HR ORAL 10/12/18 13:00 11/11/18 12:59 Elmer Little MD Oct 12, 2018 11:59
[2018-10-12 16:00] VITALS: BP 147/67
--- NOTE | 2018-10-12 18:09 | Internal Med Progress Note ---
Subjective Date of Service: Oct 12, 2018 Physician Name Aristides Tenorio Attending Physician Perfecto Forrest MD Current Medications Medications (Trade) Dose Ordered Sig/Elton Route PRN Reason Start Time Stop Time Status Last Admin Dose Admin Acetaminophen (Tylenol) 650 mg Q6H PRN ORAL Prn Pain/Headache/Temp > 101 10/11/18 00:30 11/10/18 00:29 Amlodipine Besylate (Norvasc) 2.5 mg DAILY ORAL 10/11/18 09:00 11/10/18 08:59 10/12/18 08:40 Dextrose/Sodium Chloride 1,000 ml @ 75 mls/hr [id number] IV 10/11/18 00:45 11/10/18 00:44 10/12/18 17:25 Haloperidol Lactate (Haldol) 5 mg Q6H PRN IM Agitation 10/11/18 11:00 11/10/18 10:59 10/12/18 11:23 Heparin Sodium (Porcine) (Heparin 5000 units/ml) 5,000 units EVERY 8 HOURS SUBQ 10/11/18 14:00 11/10/18 13:59 10/12/18 13:51 Lorazepam (Ativan 2mg/ml 1ml) 1 mg Q4H PRN IM For Anxiety 10/11/18 19:00 10/18/18 18:59 Lorazepam (Ativan) 2 mg Q6H PRN ORAL For Anxiety 10/12/18 12:00 10/19/18 11:59 Olanzapine (ZyPREXA) 5 mg Q8HR ORAL 10/12/18 13:00 11/11/18 12:59 10/12/18 13:49 Allergies: Coded Allergies: No Known Allergies (Unverified , 10/09/18) ROS Limited/Unobtainable: Yes Subjective 73 YO F admitted with altered mental status. Cover for Int Med Dr Forrest Objective Last Vital Signs Date Time Temp Pulse Resp B/P (MAP) Pulse Ox O2 Delivery O2 Flow Rate FiO2 10/12/18 16:00 98.7 74 18 147/67 (93) 95 10/12/18 09:00 Room Air Laboratory Tests Test 10/12/18 06:25 White Blood Count 4.4 K/UL (4.8-10.8) L Red Blood Count 4.10 M/UL (4.20-5.40) L Hemoglobin 11.6 G/DL (12.0-16.0) L Hematocrit 36.0 % (37.0-47.0) L Mean Corpuscular Volume 88 FL (80-99) Mean Corpuscular Hemoglobin 28.4 PG (27.0-31.0) Mean Corpuscular Hemoglobin Concent 32.4 G/DL (32.0-36.0) Red Cell Distribution Width 13.4 % (11.6-14.8) Platelet Count 199 K/UL (150-450) Mean Platelet Volume 6.9 FL (6.5-10.1) Neutrophils (%) (Auto) 70.3 % (45.0-75.0) Lymphocytes (%) (Auto) 21.0 % (20.0-45.0) Monocytes (%) (Auto) 6.6 % (1.0-10.0) Eosinophils (%) (Auto) 1.3 % (0.0-3.0) Basophils (%) (Auto) 0.9 % (0.0-2.0) Sodium Level 142 MMOL/L (136-145) Potassium Level 3.4 MMOL/L (3.5-5.1) L Chloride Level 108 MMOL/L (98-107) H Carbon Dioxide Level 24 MMOL/L (21-32) Anion Gap 10 mmol/L (5-15) Blood Urea Nitrogen 7 mg/dL (7-18) Creatinine 0.5 MG/DL (0.55-1.30) L Estimat Glomerular Filtration Rate mL/min (>60) Glucose Level 92 MG/DL (74-106) Calcium Level 8.8 MG/DL (8.5-10.1) Phosphorus Level 2.8 MG/DL (2.5-4.9) Magnesium Level 2.0 MG/DL (1.8-2.4) Total Bilirubin 0.2 MG/DL (0.2-1.0) Aspartate Amino Transf (AST/SGOT) 18 U/L (15-37) Alanine Aminotransferase (ALT/SGPT) 23 U/L (12-78) Alkaline Phosphatase 75 U/L (46-116) Troponin I 0.000 ng/mL (0.000-0.056) Total Protein 6.1 G/DL (6.4-8.2) L Albumin 2.8 G/DL (3.4-5.0) L Globulin 3.3 g/dL Albumin/Globulin Ratio 0.8 (1.0-2.7) L Intake and Output 10/11/18 10/12/18 19:00 07:00 Intake Total 555 ml 375 ml Balance 555 ml 375 ml Intake Oral 480 ml IV Total 75 ml 375 ml # Voids 2 # Bowel Movements 1 Objective PHYSICAL EXAMINATION: GENERAL: The patient is awake and arousable, however, cannot follow commands. HEAD AND NECK: Pupils are equal to light and anicteric. Neck was supple. No JVD. LUNGS: No wheeze or rhonchi. Decreased air in the bases. Poor inspiratory effort. HEART: S1 and S2. Distant heart sounds. No murmur or gallops. ABDOMEN: Soft, nondistended, and nontender. Positive bowel sounds. EXTREMITIES: No cyanosis, clubbing, or edema. NEUROLOGIC: Very limited secondary to the patient's status. The patient is moving all the extremities spontaneously, however, cannot follow commands. Assessment/Plan Assessment/Plan ASSESSMENT: 1. Altered mental status, most likely secondary to toxic encephalopathy as a result of medication induced. 2. Hypertension. 3. Severe agitation in the past. 4. Mild dehydration with prerenal azotemia. PLAN: 1. Admit the patient to medical floor. 2. We will follow up with psychiatry consultation with Dr. Abby Duffy. 3. We will follow up with Dr. Anabel chavez. 4. IV hydration. 5. Code status is Full Code at this time. 6. We will monitor patient with one-to-one sitter. 7. DVT prophylaxis, heparin subcutaneous Aristides Tenorio MD Oct 12, 2018 18:09
--- NOTE | 2018-10-12 19:15 | NUR ---
HAND-OFF: Report given to MICHELLE Roe.
--- NOTE | 2018-10-12 19:30 | NUR ---
NURSE NOTES: Patient in bed, awake, confused. Able to make simple needs known. patient bed in low and locked position. Soft wrist restraint noted. Patient multiple attempt to stand up without aid. History of falls. Tried to reorient patient, patient unable to comprehend. Skin is warm and dry to touch. Wrist pulse noted, no redness. Abdomen is soft and non distended. Call light is at bedside. Will continue plan of care.
[2018-10-12 20:00] VITALS: BP 123/57
[2018-10-13] VITALS: BP 126/55
[2018-10-13 04:00] VITALS: BP 122/52
[2018-10-13] MEDS: Haloperidol 5mg/ml Inj IM PRN ×2 (05:23→14:08)
[2018-10-13] MEDS: Heparin 5000 units/ml inj SUBQ SCH ×3 (05:23→21:28)
[2018-10-13] MEDS: D5 1/2NS 1,000 ML IV SCH ×2 (05:59→18:28)
--- NOTE | 2018-10-13 07:18 | NUR ---
HAND-OFF: Report given to MICHELLE Ochoa.
--- NOTE | 2018-10-13 07:22 | NUR ---
NURSE NOTES: Patient confused, trying to get out of bed; patine of soft restrain on both wrists; on room air, on sign of shortness of breath and distress; no sign of chest pain; IV LAC fluid running; bed at lowest position, side rails up x3, breaks engaged, bed alarm on, fall percussion sign at the door; Will keep monitoring.
[2018-10-13 07:49] LABS: BASOPHILS % (AUTO) 0.6 % (0.0-2.0); EOSINOPHILS % (AUTO) 0.8 % (0.0-3.0); HEMATOCRIT 39.2 % (37.0-47.0); HEMOGLOBIN 12.8 G/DL (12.0-16.0); LYMPHOCYTES % (AUTO) 15.1 % (20.0-45.0); MEAN CORPUSCULAR VOLUME 88 FL (80-99); MONOCYTES % (AUTO) 7.3 % (1.0-10.0); NEUTROPHILS % (AUTO) 76.2 % (45.0-75.0); PLATELET COUNT 213 K/UL (150-450); RED BLOOD COUNT 4.48 M/UL (4.20-5.40); RED CELL DISTRIBUTION WIDTH 13.2 % (11.6-14.8); WHITE BLOOD COUNT 5.7 K/UL (4.8-10.8)
[2018-10-13 08:00] VITALS: BP 141/70
[2018-10-13 08:20] LABS: ANION GAP 8 mmol/L (5-15); BLOOD UREA NITROGEN 8 mg/dL (7-18); CARBON DIOXIDE 27 MMOL/L (21-32); CHLORIDE 105 MMOL/L (98-107); CREATININE 0.5 MG/DL (0.55-1.30); POTASSIUM 3.3 MMOL/L (3.5-5.1); SODIUM 140 MMOL/L (136-145)
[2018-10-13] MEDS: LORazepam 1mg tab ORAL PRN ×2 (08:41→21:15)
[2018-10-13 12:00] VITALS: BP 150/79
--- NOTE | 2018-10-13 15:52 | NUR ---
CASE MANAGEMENT: REVIEW 10/13/2018 SI:TOXIC ENCEPHALOPATHY T 98 HR 99 RR 18 B/P 150/79 SATS 95% ON RA K 3.3 CR 0.5 GLU 109 IS: IVF @ 75 mL/HR NORVASC PO QD ZYPREXA PO Q8H MED/SURG STATUS
[2018-10-13 16:00] VITALS: BP 157/100
--- NOTE | 2018-10-13 16:17 | Pulmonology Progress Note ---
Assessment/Plan Problems: (1) Acute delirium (2) Encephalopathy acute (3) History of hypertension (4) Alzheimer's dementia Assessment/Plan no new complains improving asymptomatic pt/ot symptomatic treatment f/u psych recommendations Subjective ROS Limited/Unobtainable: No Constitutional: Reports: no symptoms HEENT: Repors: no symptoms Allergies: Coded Allergies: No Known Allergies (Unverified , 10/09/18) Objective Last 24 Hour Vital Signs Date Time Temp Pulse Resp B/P (MAP) Pulse Ox O2 Delivery O2 Flow Rate FiO2 10/13/18 12:00 98.0 99 18 150/79 (102) 95 10/13/18 09:00 Room Air 10/13/18 08:41 95 141/70 10/13/18 08:00 97.5 95 18 141/70 (93) 95 10/13/18 04:00 97.6 76 18 122/52 (75) 99 10/13/18 00:00 98.1 70 16 126/55 (78) 97 10/12/18 20:50 Room Air 10/12/18 20:00 98.4 96 17 123/57 (79) 94 Intake and Output 10/12/18 10/13/18 19:00 07:00 Intake Total 1845 ml 900 ml Balance 1845 ml 900 ml Intake Oral 1020 ml IV Total 825 ml 900 ml # Voids 4 3 # Bowel Movements 1 HEENT: normocephalic, mucous membranes moist Respiratory/Chest: lungs clear, normal breath sounds Breasts: no masses Cardiovascular: normal rate Abdomen: normal bowel sounds, no mass Extremities: no cyanosis Skin: no lesions Microbiology Date/Time Source Procedure Growth Status 10/10/18 23:00 Nasal Nares MRSA Culture - Final NO METHICILLIN RESISTANT STAPH AUREUS... Complete 10/10/18 23:00 Rectum - Final NO CARBAPENEM-RESISTANT ENTEROBACTERI... Complete 10/10/18 23:00 Rectum VRE Culture - Final NO VANCOMYCIN RESISTANT ENTEROCOCCUS ... Complete Laboratory Tests 10/13/18 06:20: White Blood Count 5.7, Red Blood Count 4.48, Hemoglobin 12.8, Hematocrit 39.2, Mean Corpuscular Volume 88, Mean Corpuscular Hemoglobin 28.5, Mean Corpuscular Hemoglobin Concent 32.6, Red Cell Distribution Width 13.2, Platelet Count 213, Mean Platelet Volume 6.9, Neutrophils (%) (Auto) 76.2H, Lymphocytes (%) (Auto) 15.1L, Monocytes (%) (Auto) 7.3, Eosinophils (%) (Auto) 0.8, Basophils (%) (Auto ) 0.6, Sodium Level 140, Potassium Level 3.3L, Chloride Level 105, Carbon Dioxide Level 27, Anion Gap 8, Blood Urea Nitrogen 8, Creatinine 0.5L, Estimat Glomerular Filtration Rate , Glucose Level 109H, Calcium Level 9.0 Current Medications Medications (Trade) Dose Ordered Sig/Elton Route PRN Reason Start Time Stop Time Status Last Admin Dose Admin Acetaminophen (Tylenol) 650 mg Q6H PRN ORAL Prn Pain/Headache/Temp > 101 10/11/18 00:30 11/10/18 00:29 Amlodipine Besylate (Norvasc) 2.5 mg DAILY ORAL 10/11/18 09:00 11/10/18 08:59 10/13/18 08:41 Dextrose/Sodium Chloride 1,000 ml @ 75 mls/hr [id number] IV 10/11/18 00:45 11/10/18 00:44 10/13/18 05:59 Haloperidol Lactate (Haldol) 5 mg Q6H PRN IM Agitation 10/11/18 11:00 11/10/18 10:59 10/13/18 14:08 Heparin Sodium (Porcine) (Heparin 5000 units/ml) 5,000 units EVERY 8 HOURS SUBQ 10/11/18 14:00 11/10/18 13:59 10/13/18 14:11 Lorazepam (Ativan 2mg/ml 1ml) 1 mg Q4H PRN IM For Anxiety 10/11/18 19:00 10/18/18 18:59 Lorazepam (Ativan) 2 mg Q6H PRN ORAL For Anxiety 10/12/18 12:00 10/19/18 11:59 10/13/18 08:41 Olanzapine (ZyPREXA) 5 mg Q8HR ORAL 10/12/18 13:00 11/11/18 12:59 10/13/18 14:08 Elmer Little MD Oct 13, 2018 16:17
--- NOTE | 2018-10-13 17:06 | Internal Med Progress Note ---
Subjective Date of Service: Oct 13, 2018 Physician Name Aristides Tenorio Attending Physician Perfecto Forrest MD Current Medications Medications (Trade) Dose Ordered Sig/Elton Route PRN Reason Start Time Stop Time Status Last Admin Dose Admin Acetaminophen (Tylenol) 650 mg Q6H PRN ORAL Prn Pain/Headache/Temp > 101 10/11/18 00:30 11/10/18 00:29 Amlodipine Besylate (Norvasc) 2.5 mg DAILY ORAL 10/11/18 09:00 11/10/18 08:59 10/13/18 08:41 Dextrose/Sodium Chloride 1,000 ml @ 75 mls/hr [id number] IV 10/11/18 00:45 11/10/18 00:44 10/13/18 05:59 Haloperidol Lactate (Haldol) 5 mg Q6H PRN IM Agitation 10/11/18 11:00 11/10/18 10:59 10/13/18 14:08 Heparin Sodium (Porcine) (Heparin 5000 units/ml) 5,000 units EVERY 8 HOURS SUBQ 10/11/18 14:00 11/10/18 13:59 10/13/18 14:11 Lorazepam (Ativan 2mg/ml 1ml) 1 mg Q4H PRN IM For Anxiety 10/11/18 19:00 10/18/18 18:59 Lorazepam (Ativan) 2 mg Q6H PRN ORAL For Anxiety 10/12/18 12:00 10/19/18 11:59 10/13/18 08:41 Olanzapine (ZyPREXA) 5 mg Q8HR ORAL 10/12/18 13:00 11/11/18 12:59 10/13/18 14:08 Potassium Chloride (K-Dur) 20 meq ONCE ORAL 10/13/18 16:30 10/13/18 17:30 10/13/18 16:32 Allergies: Coded Allergies: No Known Allergies (Unverified , 10/09/18) ROS Limited/Unobtainable: Yes Subjective 73 YO F admitted with altered mental status. Cover for Int Med Dr Forrest Objective Last Vital Signs Date Time Temp Pulse Resp B/P (MAP) Pulse Ox O2 Delivery O2 Flow Rate FiO2 10/13/18 12:00 98.0 99 18 150/79 (102) 95 10/13/18 09:00 Room Air Laboratory Tests Test 10/13/18 06:20 White Blood Count 5.7 K/UL (4.8-10.8) Red Blood Count 4.48 M/UL (4.20-5.40) Hemoglobin 12.8 G/DL (12.0-16.0) Hematocrit 39.2 % (37.0-47.0) Mean Corpuscular Volume 88 FL (80-99) Mean Corpuscular Hemoglobin 28.5 PG (27.0-31.0) Mean Corpuscular Hemoglobin Concent 32.6 G/DL (32.0-36.0) Red Cell Distribution Width 13.2 % (11.6-14.8) Platelet Count 213 K/UL (150-450) Mean Platelet Volume 6.9 FL (6.5-10.1) Neutrophils (%) (Auto) 76.2 % (45.0-75.0) H Lymphocytes (%) (Auto) 15.1 % (20.0-45.0) L Monocytes (%) (Auto) 7.3 % (1.0-10.0) Eosinophils (%) (Auto) 0.8 % (0.0-3.0) Basophils (%) (Auto) 0.6 % (0.0-2.0) Sodium Level 140 MMOL/L (136-145) Potassium Level 3.3 MMOL/L (3.5-5.1) L Chloride Level 105 MMOL/L (98-107) Carbon Dioxide Level 27 MMOL/L (21-32) Anion Gap 8 mmol/L (5-15) Blood Urea Nitrogen 8 mg/dL (7-18) Creatinine 0.5 MG/DL (0.55-1.30) L Estimat Glomerular Filtration Rate mL/min (>60) Glucose Level 109 MG/DL (74-106) H Calcium Level 9.0 MG/DL (8.5-10.1) Microbiology Date/Time Source Procedure Growth Status 10/10/18 23:00 Nasal Nares MRSA Culture - Final NO METHICILLIN RESISTANT STAPH AUREUS... Complete 10/10/18 23:00 Rectum - Final NO CARBAPENEM-RESISTANT ENTEROBACTERI... Complete 10/10/18 23:00 Rectum VRE Culture - Final NO VANCOMYCIN RESISTANT ENTEROCOCCUS ... Complete Intake and Output 10/12/18 10/13/18 19:00 07:00 Intake Total 1845 ml 900 ml Balance 1845 ml 900 ml Intake Oral 1020 ml IV Total 825 ml 900 ml # Voids 4 3 # Bowel Movements 1 Objective PHYSICAL EXAMINATION: GENERAL: The patient is awake and arousable, however, cannot follow commands. HEAD AND NECK: Pupils are equal to light and anicteric. Neck was supple. No JVD. LUNGS: No wheeze or rhonchi. Decreased air in the bases. Poor inspiratory effort. HEART: S1 and S2. Distant heart sounds. No murmur or gallops. ABDOMEN: Soft, nondistended, and nontender. Positive bowel sounds. EXTREMITIES: No cyanosis, clubbing, or edema. NEUROLOGIC: Very limited secondary to the patient's status. The patient is moving all the extremities spontaneously, however, cannot follow commands. Assessment/Plan Assessment/Plan ASSESSMENT: 1. Altered mental status, most likely secondary to toxic encephalopathy as a result of medication induced. 2. Hypertension. 3. Severe agitation in the past. 4. Mild dehydration with prerenal azotemia. PLAN: 1. Admit the patient to medical floor. 2. We will follow up with psychiatry consultation with Dr. Abby Duffy. 3. We will follow up with Dr. Little recommendation. 4. IV hydration. 5. Code status is Full Code at this time. 6. We will monitor patient with one-to-one sitter. 7. DVT prophylaxis, heparin subcutaneous Aristides Tenorio MD Oct 13, 2018 17:06
--- NOTE | 2018-10-13 19:23 | NUR ---
HAND-OFF: Report given to MICHELLE Roe.
--- NOTE | 2018-10-13 19:41 | NUR ---
NURSE NOTES: Patient in bed, awake, honduran speaking, confused. Able to make simple needs known. SKin is intact, warm and dry to touch. Abdomen is soft and non distended. IV site is noted, iv fluid is infusing as ordered. Bed in low and locked position. Provided safe environment. Call light is at bedside. Will continue plan of care.
[2018-10-13 20:00] VITALS: BP 141/70
[2018-10-14] VITALS: BP 134/68
[2018-10-14 04:31] VITALS: BP 145/85
[2018-10-14] MEDS: Heparin 5000 units/ml inj SUBQ SCH ×3 (05:39→22:21)
[2018-10-14] MEDS: D5 1/2NS 1,000 ML IV SCH ×3 (05:41→22:49)
--- NOTE | 2018-10-14 06:49 | NUR ---
NURSE NOTES: Noted with right elbow redness and left elbow skin tear. Started per protocol wound care, pictures taken. Charge nurse made aware,
[2018-10-14 07:12] LABS: BASOPHILS % (AUTO) 0.8 % (0.0-2.0); EOSINOPHILS % (AUTO) 1.5 % (0.0-3.0); HEMATOCRIT 39.8 % (37.0-47.0); HEMOGLOBIN 13.2 G/DL (12.0-16.0); LYMPHOCYTES % (AUTO) 16.4 % (20.0-45.0); MEAN CORPUSCULAR VOLUME 87 FL (80-99); MONOCYTES % (AUTO) 8.1 % (1.0-10.0); NEUTROPHILS % (AUTO) 73.2 % (45.0-75.0); PLATELET COUNT 219 K/UL (150-450); RED BLOOD COUNT 4.56 M/UL (4.20-5.40); RED CELL DISTRIBUTION WIDTH 13.3 % (11.6-14.8); WHITE BLOOD COUNT 5.1 K/UL (4.8-10.8)
[2018-10-14 07:16] LABS: ANION GAP 7 mmol/L (5-15); BLOOD UREA NITROGEN 6 mg/dL (7-18); CALCIUM 9.1 MG/DL (8.5-10.1); CARBON DIOXIDE 27 MMOL/L (21-32); CHLORIDE 106 MMOL/L (98-107); CREATININE 0.6 MG/DL (0.55-1.30); POTASSIUM 3.7 MMOL/L (3.5-5.1); SODIUM 140 MMOL/L (136-145)
--- NOTE | 2018-10-14 07:24 | NUR ---
HAND-OFF: Report given to MICHELLE Solomon.
[2018-10-14 08:00] VITALS: BP 148/72
--- NOTE | 2018-10-14 08:23 | NUR ---
NURSE NOTES: Patient is awake and alert to name,respirations are unlabored,IV fluids infusing as ordered,noted patient with soft wrist restraints,will monitor.bed alarm is on,call light within reach.
--- NOTE | 2018-10-14 11:43 | NUR ---
*-* INSURANCE *-* UPDATED CLINICALS AND REVIEWS HAVE BEEN FAXED TO: [employer] P:[phone] F: [phone] Addendum: 10/14/18 at 1144 by SARAH MALIN CM JENISE# [id number]
[2018-10-14 12:00] VITALS: BP 146/81
--- NOTE | 2018-10-14 12:01 | General Progress Note ---
Assessment/Plan Problem List: (1) Acute metabolic encephalopathy ICD Codes: G93.41 - Metabolic encephalopathy SNOMED: 65537743, [id number] Assessment/Plan Zyprexa 5mg po tid Zyprexa 2.5mg x 1time Haldol Im prn Ativan IM prn the pt lacks capacity to make decisions. Subjective Neurologic/Psychiatric: Reports: anxiety, depressed, emotional problems Allergies: Coded Allergies: No Known Allergies (Unverified , 10/09/18) Subjective cont to be agitated cont to be confused memory impairment not following command disorganized and delusional Objective Last 24 Hour Vital Signs Date Time Temp Pulse Resp B/P (MAP) Pulse Ox O2 Delivery O2 Flow Rate FiO2 10/14/18 08:47 98 148/72 10/14/18 08:00 98.1 98 18 148/72 (97) 93 10/14/18 04:31 98.6 100 18 145/85 (105) 94 10/14/18 00:00 98.1 79 18 134/68 (90) 97 10/13/18 21:00 Room Air 10/13/18 20:00 98.5 88 18 141/70 (93) 95 10/13/18 16:00 98.1 100 20 157/100 (119) 95 10/13/18 12:00 98.0 99 18 150/79 (102) 95 Intake and Output 10/13/18 10/14/18 18:59 06:59 Intake Total 1110 ml 750 ml Output Total 500 ml Balance 1110 ml 250 ml Intake Oral 360 ml 150 ml IV Total 750 ml 600 ml Output Urine Total 500 ml # Voids 2 Laboratory Tests 10/14/18 06:15: White Blood Count 5.1, Red Blood Count 4.56, Hemoglobin 13.2, Hematocrit 39.8, Mean Corpuscular Volume 87, Mean Corpuscular Hemoglobin 29.0, Mean Corpuscular Hemoglobin Concent 33.2, Red Cell Distribution Width 13.3, Platelet Count 219, Mean Platelet Volume 6.5, Neutrophils (%) (Auto) 73.2, Lymphocytes (%) (Auto) 16.4L, Monocytes (%) (Auto) 8.1, Eosinophils (%) (Auto) 1.5, Basophils (%) (Auto ) 0.8, Sodium Level 140, Potassium Level 3.7, Chloride Level 106, Carbon Dioxide Level 27, Anion Gap 7, Blood Urea Nitrogen 6L, Creatinine 0.6, Estimat Glomerular Filtration Rate , Glucose Level 109H, Calcium Level 9.1 Height (Feet): 5 Height (Inches): 4.00 Weight (Pounds): 130 General Appearance: no apparent distress, alert, confused, agitated Abby Duffy MD Oct 14, 2018 12:01
--- NOTE | 2018-10-14 13:48 | NUR ---
[employer]SULTANT[employer]BER DEFENSE INCIDENT RESPONDER SI:TOXIC ENCEPHALOPATHY VS: BP 148/72, P 98, T 98.1, RR 18, SpO2 93 Room Air Lymph% 16.4, BUN 6, Ur Leukocyte Esterase 1+ IS:Olanzapine Heparin Amlodipine Dextrose IV MED/SURG STATUS
--- NOTE | 2018-10-14 14:26 | Pulmonology Progress Note ---
Assessment/Plan Problems: (1) Acute delirium (2) Encephalopathy acute (3) History of hypertension (4) Alzheimer's dementia Assessment/Plan more awake no new complains improving asymptomatic pt/ot symptomatic treatment f/u psych recommendations Subjective ROS Limited/Unobtainable: No Constitutional: Reports: no symptoms HEENT: Repors: no symptoms Respiratory: Reports: no symptoms Allergies: Coded Allergies: No Known Allergies (Unverified , 10/09/18) Objective Last 24 Hour Vital Signs Date Time Temp Pulse Resp B/P (MAP) Pulse Ox O2 Delivery O2 Flow Rate FiO2 10/14/18 09:00 Room Air 10/14/18 08:47 98 148/72 10/14/18 08:00 98.1 98 18 148/72 (97) 93 10/14/18 04:31 98.6 100 18 145/85 (105) 94 10/14/18 00:00 98.1 79 18 134/68 (90) 97 10/13/18 21:00 Room Air 10/13/18 20:00 98.5 88 18 141/70 (93) 95 10/13/18 16:00 98.1 100 20 157/100 (119) 95 Intake and Output 10/13/18 10/14/18 18:59 06:59 Intake Total 1110 ml 750 ml Output Total 500 ml Balance 1110 ml 250 ml Intake Oral 360 ml 150 ml IV Total 750 ml 600 ml Output Urine Total 500 ml # Voids 2 General Appearance: WD/WN HEENT: normocephalic, atraumatic Respiratory/Chest: chest wall non-tender, lungs clear Breasts: no masses Cardiovascular: normal peripheral pulses Abdomen: normal bowel sounds, soft, non tender Genitourinary: normal external genitalia Skin: no rash Laboratory Tests 10/14/18 06:15: White Blood Count 5.1, Red Blood Count 4.56, Hemoglobin 13.2, Hematocrit 39.8, Mean Corpuscular Volume 87, Mean Corpuscular Hemoglobin 29.0, Mean Corpuscular Hemoglobin Concent 33.2, Red Cell Distribution Width 13.3, Platelet Count 219, Mean Platelet Volume 6.5, Neutrophils (%) (Auto) 73.2, Lymphocytes (%) (Auto) 16.4L, Monocytes (%) (Auto) 8.1, Eosinophils (%) (Auto) 1.5, Basophils (%) (Auto ) 0.8, Sodium Level 140, Potassium Level 3.7, Chloride Level 106, Carbon Dioxide Level 27, Anion Gap 7, Blood Urea Nitrogen 6L, Creatinine 0.6, Estimat Glomerular Filtration Rate , Glucose Level 109H, Calcium Level 9.1 Current Medications Medications (Trade) Dose Ordered Sig/Elton Route PRN Reason Start Time Stop Time Status Last Admin Dose Admin Acetaminophen (Tylenol) 650 mg Q6H PRN ORAL Prn Pain/Headache/Temp > 101 10/11/18 00:30 11/10/18 00:29 Amlodipine Besylate (Norvasc) 2.5 mg DAILY ORAL 10/11/18 09:00 11/10/18 08:59 10/14/18 08:47 Dextrose/Sodium Chloride 1,000 ml @ 75 mls/hr [id number] IV 10/11/18 00:45 11/10/18 00:44 10/14/18 05:41 Haloperidol Lactate (Haldol) 5 mg Q6H PRN IM Agitation 10/11/18 11:00 11/10/18 10:59 10/13/18 14:08 Heparin Sodium (Porcine) (Heparin 5000 units/ml) 5,000 units EVERY 8 HOURS SUBQ 10/11/18 14:00 11/10/18 13:59 10/14/18 05:39 Lorazepam (Ativan 2mg/ml 1ml) 1 mg Q4H PRN IM For Anxiety 10/11/18 19:00 10/18/18 18:59 Lorazepam (Ativan) 2 mg Q6H PRN ORAL For Anxiety 10/12/18 12:00 10/19/18 11:59 10/13/18 21:15 Olanzapine (ZyPREXA) 5 mg Q8HR ORAL 10/12/18 13:00 11/11/18 12:59 10/14/18 05:38 Elmer Little MD Oct 14, 2018 14:26
--- NOTE | 2018-10-14 15:20 | NUR ---
FINANCIAL ANALYSIS MANAGER NOTES SPOKE WITH MATIAS FROM [facility], [phone]
[2018-10-14 16:00] VITALS: BP 165/71
--- NOTE | 2018-10-14 17:25 | NUR ---
NURSE NOTES: DR Sylvester will call in prescription Zyprexa, went over discharge medication Zyprexa, state patient does not need to be on namenda.
--- NOTE | 2018-10-14 19:00 | NUR ---
NURSE NOTES: Patient resting,waiting for picking belt operator [facility] state within 30 minutes.call light within reach,bed alarm is on.
--- NOTE | 2018-10-14 19:20 | NUR ---
NURSE NOTES: While Waiting for [facility] ambulance Patient Grand Daughter called and stated that the family requesting patient to not go back to [facility],their concern is that patient at the [facility] has fallen a few times and since patient confusion,she needs to be monitored more and they feel she is not getting the care at [facility],called placed to DR Tenorio of family concerns.
--- NOTE | 2018-10-14 19:20 | NUR ---
HAND-OFF: Report given to Bertha MARTINEZ.
--- NOTE | 2018-10-14 19:30 | Internal Med Progress Note ---
Subjective Date of Service: Oct 14, 2018 Physician Name Aristides Tenorio Attending Physician Perfecto Forrest MD Current Medications Medications (Trade) Dose Ordered Sig/Elton Route PRN Reason Start Time Stop Time Status Last Admin Dose Admin Acetaminophen (Tylenol) 650 mg Q6H PRN ORAL Prn Pain/Headache/Temp > 101 10/11/18 00:30 11/10/18 00:29 Amlodipine Besylate (Norvasc) 2.5 mg DAILY ORAL 10/11/18 09:00 11/10/18 08:59 10/14/18 08:47 Dextrose/Sodium Chloride 1,000 ml @ 75 mls/hr [id number] IV 10/11/18 00:45 11/10/18 00:44 10/14/18 05:41 Haloperidol Lactate (Haldol) 5 mg Q6H PRN IM Agitation 10/11/18 11:00 11/10/18 10:59 10/13/18 14:08 Heparin Sodium (Porcine) (Heparin 5000 units/ml) 5,000 units EVERY 8 HOURS SUBQ 10/11/18 14:00 11/10/18 13:59 10/14/18 14:41 Lorazepam (Ativan 2mg/ml 1ml) 1 mg Q4H PRN IM For Anxiety 10/11/18 19:00 10/18/18 18:59 Lorazepam (Ativan) 2 mg Q6H PRN ORAL For Anxiety 10/12/18 12:00 10/19/18 11:59 10/13/18 21:15 Olanzapine (ZyPREXA) 5 mg Q8HR ORAL 10/12/18 13:00 11/11/18 12:59 10/14/18 14:40 Allergies: Coded Allergies: No Known Allergies (Unverified , 10/09/18) ROS Limited/Unobtainable: Yes Subjective 73 YO F admitted with altered mental status. Cover for Int Med Dr Forrest Objective Last Vital Signs Date Time Temp Pulse Resp B/P (MAP) Pulse Ox O2 Delivery O2 Flow Rate FiO2 10/14/18 16:00 97.2 85 20 165/71 (102) 95 10/14/18 09:00 Room Air Laboratory Tests Test 10/14/18 06:15 White Blood Count 5.1 K/UL (4.8-10.8) Red Blood Count 4.56 M/UL (4.20-5.40) Hemoglobin 13.2 G/DL (12.0-16.0) Hematocrit 39.8 % (37.0-47.0) Mean Corpuscular Volume 87 FL (80-99) Mean Corpuscular Hemoglobin 29.0 PG (27.0-31.0) Mean Corpuscular Hemoglobin Concent 33.2 G/DL (32.0-36.0) Red Cell Distribution Width 13.3 % (11.6-14.8) Platelet Count 219 K/UL (150-450) Mean Platelet Volume 6.5 FL (6.5-10.1) Neutrophils (%) (Auto) 73.2 % (45.0-75.0) Lymphocytes (%) (Auto) 16.4 % (20.0-45.0) L Monocytes (%) (Auto) 8.1 % (1.0-10.0) Eosinophils (%) (Auto) 1.5 % (0.0-3.0) Basophils (%) (Auto) 0.8 % (0.0-2.0) Sodium Level 140 MMOL/L (136-145) Potassium Level 3.7 MMOL/L (3.5-5.1) Chloride Level 106 MMOL/L (98-107) Carbon Dioxide Level 27 MMOL/L (21-32) Anion Gap 7 mmol/L (5-15) Blood Urea Nitrogen 6 mg/dL (7-18) L Creatinine 0.6 MG/DL (0.55-1.30) Estimat Glomerular Filtration Rate mL/min (>60) Glucose Level 109 MG/DL (74-106) H Calcium Level 9.1 MG/DL (8.5-10.1) Intake and Output 10/13/18 10/14/18 19:00 07:00 Intake Total 1110 ml 750 ml Output Total 500 ml Balance 1110 ml 250 ml Intake Oral 360 ml 150 ml IV Total 750 ml 600 ml Output Urine Total 500 ml # Voids 2 Objective PHYSICAL EXAMINATION: GENERAL: The patient is awake and arousable, however, cannot follow commands. HEAD AND NECK: Pupils are equal to light and anicteric. Neck was supple. No JVD. LUNGS: No wheeze or rhonchi. Decreased air in the bases. Poor inspiratory effort. HEART: S1 and S2. Distant heart sounds. No murmur or gallops. ABDOMEN: Soft, nondistended, and nontender. Positive bowel sounds. EXTREMITIES: No cyanosis, clubbing, or edema. NEUROLOGIC: Very limited secondary to the patient's status. The patient is moving all the extremities spontaneously, however, cannot follow commands. Assessment/Plan Assessment/Plan ASSESSMENT: 1. Altered mental status, most likely secondary to toxic encephalopathy as a result of medication induced. 2. Hypertension. 3. Severe agitation in the past. 4. Mild dehydration with prerenal azotemia. PLAN: 1. Admit the patient to medical floor. 2. We will follow up with psychiatry consultation with Dr. Abby Duffy. 3. We will follow up with Dr. Little recommendation. 4. IV hydration. 5. Code status is Full Code at this time. 6. We will monitor patient with one-to-one sitter. 7. DVT prophylaxis, heparin subcutaneous 8. Discharge today to Aristides Salinas MD Oct 14, 2018 19:30
[2018-10-14 20:00] VITALS: BP 106/65
--- NOTE | 2018-10-14 20:20 | NUR ---
NURSE NOTES: PATIENT IN BED, ASLEEP, AROUSABLE TO NAME. IV IN PLACE. NO S/S DISTRESS OR PAIN NOTED. AM NURSE, ZAYNAB, ENDORSED THAT DR. AVILA AWARE OF FAMILY REFUSING TO HAVE PATIENT GO BACK TO THE ASSISTED LIVING FACILITY AND TO HOLD D/C AND AND HAVE CASE MANAGEMENT FIND ANOTHER FACILITY. DR. HERNANDEZ ALSO MADE AWARE IOF FAMILY REFUSAL. CHARGE NURSE MADE AWARE. PATIENT ON BILATERAL SOFT WRIST RESTRAINTS FOR PATIENT SAFETY. BED IN LOWEST POSITION, CALL LIGHT WITHIN REACH, BED ALARM ON. WILL CONTINUE TO MONITOR.
[2018-10-15] VITALS (8 sets, daily range): BP systolic 110–132; BP diastolic 53–87
--- NOTE | 2018-10-15 05:54 | NUR ---
NURSE NOTES: PATIENT LINEN CHANGED, NEEDED REORIENTATION , V/S STABLE.
[2018-10-15] MEDS: Heparin 5000 units/ml inj SUBQ SCH ×3 (06:08→22:33)
--- NOTE | 2018-10-15 07:25 | NUR ---
HAND-OFF: Report given to ZAYNAB RIZO RN.
--- NOTE | 2018-10-15 08:20 | NUR ---
Patient awake and alert to name,respirations unlabored,IV fluids infusing as ordered.patient ate breakfast.Assisted to bedside commode,voiding without difficulty,,patient ambulated with assist in the cancino,gait is steady,only attempt,patient tried to go into other rooms,redirected patient.Back to bed,call light within reac,bed alarm is on,patient has soft wrist restraints.
--- NOTE | 2018-10-15 12:06 | General Progress Note ---
Assessment/Plan Problem List: (1) Acute metabolic encephalopathy ICD Codes: G93.41 - Metabolic encephalopathy SNOMED: 06507531, [id number] Status: not improved, unchanged Assessment/Plan Zyprexa 5mg po tid prozac 20mg klonopin 1mg po qhs Haldol Im prn Ativan IM prn the pt lacks capacity to make decisions. psychotropics were ordered at her local pharmacy Subjective Neurologic/Psychiatric: Reports: anxiety Allergies: Coded Allergies: No Known Allergies (Unverified , 10/09/18) Subjective cont to be agitated cont to be confused memory impairment not following command disorganized and delusional the pt now going to sniff Objective Last 24 Hour Vital Signs Date Time Temp Pulse Resp B/P (MAP) Pulse Ox O2 Delivery O2 Flow Rate FiO2 10/15/18 09:13 97.9 73 18 113/53 (73) 95 10/15/18 09:10 97.9 73 18 113/53 (73) 95 10/15/18 09:00 Room Air 10/15/18 04:00 98.9 94 18 132/87 (102) 98 10/15/18 00:00 98.9 69 18 110/60 (77) 95 10/14/18 23:30 Room Air 10/14/18 20:00 97.7 87 18 106/65 (79) 96 10/14/18 16:00 97.2 85 20 165/71 (102) 95 Intake and Output 10/14/18 10/15/18 18:59 06:59 Intake Total 975 ml 925 ml Output Total 900 ml 300 ml Balance 75 ml 625 ml Intake Oral 150 ml 250 ml IV Total 825 ml 675 ml Output Urine Total 900 ml 300 ml # Voids 5 2 Height (Feet): 5 Height (Inches): 4.00 Weight (Pounds): 130 General Appearance: WD/WN, alert, confused, agitated Abby Duffy MD Oct 15, 2018 12:06
[2018-10-15] MEDS: D5 1/2NS 1,000 ML IV SCH ×2 (12:34→22:34)
[2018-10-15] MEDS: Haloperidol 5mg/ml Inj IM PRN (13:19)
--- NOTE | 2018-10-15 14:17 | NUR ---
RD ASSESSMENT & RECOMMENDATIONS SEE CARE ACTIVITY FOR COMPLETE ASSESSMENT DAILY ESTIMATED NEEDS: Needs based on Wounds/ 51kg 25-30 kcals/kg 3651-2562 total kcals 1.25-1.5 g protein/kg 64-76 g total protein 25-30 mL/kg 4136-9214 total fluid mLs NUTRITION DIAGNOSIS: Increased kcal/prot needs R/T wound healing as evidenced by rt elbow redness and lt elbow open wound per photos. CURRENT DIET:REGULAR, mech soft chopped PO DIET RECOMMENDATIONS: REGULAR/ texture as tolerated or per HOUSE NURSE ADDITIONAL RECOMMENDATIONS: * Calibrated bedscale wt for accurate CBW Conflicting wts-> EMR de=136mze, bedscale wt on 10/150=500zaf. * Wound healing: rec wound evaluation : add MVI x 1, Vit C 250mg QD, Raphael 1pkT BID * Consider HOUSE NURSE eval for appropriate texture -> currently on chopped texture
--- NOTE | 2018-10-15 14:38 | Pulmonology Progress Note ---
Assessment/Plan Problems: (1) Acute delirium (2) Encephalopathy acute (3) History of hypertension (4) Alzheimer's dementia Assessment/Plan doing better more awake no new complains improving asymptomatic pt/ot symptomatic treatment f/u psych recommendations Subjective ROS Limited/Unobtainable: No Constitutional: Reports: no symptoms HEENT: Repors: no symptoms Respiratory: Reports: no symptoms Allergies: Coded Allergies: No Known Allergies (Unverified , 10/09/18) Objective Last 24 Hour Vital Signs Date Time Temp Pulse Resp B/P (MAP) Pulse Ox O2 Delivery O2 Flow Rate FiO2 10/15/18 12:00 98.1 70 18 123/66 (85) 95 10/15/18 09:13 97.9 73 18 113/53 (73) 95 10/15/18 09:10 97.9 73 18 113/53 (73) 95 10/15/18 09:00 Room Air 10/15/18 09:00 73 113/53 10/15/18 04:00 98.9 94 18 132/87 (102) 98 10/15/18 00:00 98.9 69 18 110/60 (77) 95 10/14/18 23:30 Room Air 10/14/18 20:00 97.7 87 18 106/65 (79) 96 10/14/18 16:00 97.2 85 20 165/71 (102) 95 Intake and Output 10/14/18 10/15/18 18:59 06:59 Intake Total 975 ml 925 ml Output Total 900 ml 300 ml Balance 75 ml 625 ml Intake Oral 150 ml 250 ml IV Total 825 ml 675 ml Output Urine Total 900 ml 300 ml # Voids 5 2 General Appearance: WD/WN HEENT: normocephalic, atraumatic Respiratory/Chest: chest wall non-tender, lungs clear Cardiovascular: normal peripheral pulses, normal rate Abdomen: normal bowel sounds, non distended Genitourinary: normal external genitalia Skin: no rash Current Medications Medications (Trade) Dose Ordered Sig/Elton Route PRN Reason Start Time Stop Time Status Last Admin Dose Admin Acetaminophen (Tylenol) 650 mg Q6H PRN ORAL Prn Pain/Headache/Temp > 101 10/11/18 00:30 11/10/18 00:29 Amlodipine Besylate (Norvasc) 2.5 mg DAILY ORAL 10/11/18 09:00 11/10/18 08:59 10/14/18 08:47 Clonazepam (KlonoPIN) 1 mg BEDTIME ORAL 10/15/18 21:00 10/22/18 20:59 Dextrose/Sodium Chloride 1,000 ml @ 75 mls/hr [id number] IV 10/11/18 00:45 11/10/18 00:44 10/15/18 12:34 Fluoxetine HCl (PROzac) 20 mg DAILY ORAL 10/15/18 12:15 11/14/18 12:14 10/15/18 12:27 Haloperidol Lactate (Haldol) 5 mg Q6H PRN IM Agitation 10/11/18 11:00 11/10/18 10:59 10/15/18 13:19 Heparin Sodium (Porcine) (Heparin 5000 units/ml) 5,000 units EVERY 8 HOURS SUBQ 10/11/18 14:00 11/10/18 13:59 10/15/18 14:27 Lorazepam (Ativan 2mg/ml 1ml) 1 mg Q4H PRN IM For Anxiety 10/11/18 19:00 10/18/18 18:59 Lorazepam (Ativan) 2 mg Q6H PRN ORAL For Anxiety 10/12/18 12:00 10/19/18 11:59 10/13/18 21:15 Olanzapine (ZyPREXA) 5 mg Q8HR ORAL 10/12/18 13:00 11/11/18 12:59 10/15/18 14:25 Elmer Little MD Oct 15, 2018 14:38
--- NOTE | 2018-10-15 17:46 | NUR ---
NURSE NOTES: Patient out of bed with assist,gait is steady and at times patient will have a slight unbalanc when walking e,patient need to be watched when she ambulates.Patient is confused,reorient , back to bed assist with meals,soft restraints on,bed alarm is on,call light within reach.
--- NOTE | 2018-10-15 19:17 | Internal Med Progress Note ---
Subjective Date of Service: Oct 15, 2018 Physician Name Aristides Tenorio Attending Physician Perfecto Forrest MD Current Medications Medications (Trade) Dose Ordered Sig/Elton Route PRN Reason Start Time Stop Time Status Last Admin Dose Admin Acetaminophen (Tylenol) 650 mg Q6H PRN ORAL Prn Pain/Headache/Temp > 101 10/11/18 00:30 11/10/18 00:29 Amlodipine Besylate (Norvasc) 2.5 mg DAILY ORAL 10/11/18 09:00 11/10/18 08:59 10/14/18 08:47 Clonazepam (KlonoPIN) 1 mg BEDTIME ORAL 10/15/18 21:00 10/22/18 20:59 Dextrose/Sodium Chloride 1,000 ml @ 75 mls/hr [id number] IV 10/11/18 00:45 11/10/18 00:44 10/15/18 12:34 Fluoxetine HCl (PROzac) 20 mg DAILY ORAL 10/15/18 12:15 11/14/18 12:14 10/15/18 12:27 Haloperidol Lactate (Haldol) 5 mg Q6H PRN IM Agitation 10/11/18 11:00 11/10/18 10:59 10/15/18 13:19 Heparin Sodium (Porcine) (Heparin 5000 units/ml) 5,000 units EVERY 8 HOURS SUBQ 10/11/18 14:00 11/10/18 13:59 10/15/18 14:27 Lorazepam (Ativan 2mg/ml 1ml) 1 mg Q4H PRN IM For Anxiety 10/11/18 19:00 10/18/18 18:59 Lorazepam (Ativan) 2 mg Q6H PRN ORAL For Anxiety 10/12/18 12:00 10/19/18 11:59 10/13/18 21:15 Olanzapine (ZyPREXA) 5 mg Q8HR ORAL 10/12/18 13:00 11/11/18 12:59 10/15/18 14:25 Allergies: Coded Allergies: No Known Allergies (Unverified , 10/09/18) ROS Limited/Unobtainable: Yes Subjective 73 YO F admitted with altered mental status. Cover for Int Med Dr Forrest. Await SNF placement Objective Last Vital Signs Date Time Temp Pulse Resp B/P (MAP) Pulse Ox O2 Delivery O2 Flow Rate FiO2 10/15/18 16:00 98.8 84 18 124/66 (85) 10/15/18 12:00 95 10/15/18 09:00 Room Air Intake and Output 10/14/18 10/15/18 19:00 07:00 Intake Total 1050 ml 850 ml Output Total 900 ml 300 ml Balance 150 ml 550 ml Intake Oral 150 ml 250 ml IV Total 900 ml 600 ml Output Urine Total 900 ml 300 ml # Voids 5 2 Objective PHYSICAL EXAMINATION: GENERAL: The patient is awake and arousable, however, cannot follow commands. HEAD AND NECK: Pupils are equal to light and anicteric. Neck was supple. No JVD. LUNGS: No wheeze or rhonchi. Decreased air in the bases. Poor inspiratory effort. HEART: S1 and S2. Distant heart sounds. No murmur or gallops. ABDOMEN: Soft, nondistended, and nontender. Positive bowel sounds. EXTREMITIES: No cyanosis, clubbing, or edema. NEUROLOGIC: Very limited secondary to the patient's status. The patient is moving all the extremities spontaneously, however, cannot follow commands. Assessment/Plan Assessment/Plan ASSESSMENT: 1. Altered mental status, most likely secondary to toxic encephalopathy as a result of medication induced. 2. Hypertension. 3. Severe agitation in the past. 4. Mild dehydration with prerenal azotemia. PLAN: 1. Admit the patient to medical floor. 2. We will follow up with psychiatry consultation with Dr. Abby Duffy. 3. We will follow up with Dr. Anabel chavez. 4. IV hydration. 5. Code status is Full Code at this time. 6. We will monitor patient with one-to-one sitter. 7. DVT prophylaxis, heparin subcutaneous 8. Discharge planning: [facility]. Await longterm facility bed Aristides Tenorio MD Oct 15, 2018 19:17
--- NOTE | 2018-10-15 19:20 | NUR ---
NURSE NOTES: Received a report from MICHELLE Hernandez. Pt is in stable condition. Confused. No respiratory distress. On room air. No c/o pain/discomfort. IV site is patent and intact. Bed in lowest position. Bed alarm is on. Call light within reach. Will continue to monitor.
--- NOTE | 2018-10-15 19:24 | NUR ---
HAND-OFF: Report given to SHANA MARTINEZ.
[2018-10-16] VITALS: BP 115/54
[2018-10-16 04:00] VITALS: BP 126/73
[2018-10-16] MEDS: Heparin 5000 units/ml inj SUBQ SCH ×3 (05:06→21:35)
--- NOTE | 2018-10-16 07:20 | NUR ---
HAND-OFF: Report given to MICHELLE Diaz.
[2018-10-16 07:27] LABS: BASOPHILS % (AUTO) 0.9 % (0.0-2.0); EOSINOPHILS % (AUTO) 2.9 % (0.0-3.0); HEMATOCRIT 37.4 % (37.0-47.0); HEMOGLOBIN 12.2 G/DL (12.0-16.0); LYMPHOCYTES % (AUTO) 15.4 % (20.0-45.0); MEAN CORPUSCULAR VOLUME 88 FL (80-99); MONOCYTES % (AUTO) 9.3 % (1.0-10.0); NEUTROPHILS % (AUTO) 71.6 % (45.0-75.0); PLATELET COUNT 203 K/UL (150-450); RED BLOOD COUNT 4.26 M/UL (4.20-5.40); RED CELL DISTRIBUTION WIDTH 13.3 % (11.6-14.8); WHITE BLOOD COUNT 4.4 K/UL (4.8-10.8)
[2018-10-16 07:47] LABS: ANION GAP 8 mmol/L (5-15); BLOOD UREA NITROGEN 12 mg/dL (7-18); CALCIUM 9.1 MG/DL (8.5-10.1); CARBON DIOXIDE 27 MMOL/L (21-32); CHLORIDE 107 MMOL/L (98-107); CREATININE 0.6 MG/DL (0.55-1.30); POTASSIUM 3.4 MMOL/L (3.5-5.1); SODIUM 142 MMOL/L (136-145)
--- NOTE | 2018-10-16 07:50 | NUR ---
NURSE NOTES: Patient awake, confused; on room air, no sign of distress and shortness of breath; no sign of chest pain; bed at lowest level, side rails up x2, breaks engaged, bed alarm on; IV L-Hand patent and fluid running; bed side common within reach and will help patient as needed. Will keep monitoring.
[2018-10-16 08:00] VITALS: BP 120/64
[2018-10-16] MEDS: LORazepam 1mg tab ORAL PRN (10:23)
--- NOTE | 2018-10-16 11:48 | NUR ---
P.T Note: P.T evaluation completed and treatment initiated. Please refer to P.T evaluation for current functional status. Pt is alert, Oriented to self , confused and required constant redirection to tasks. Pt presented with generalized weakness affecting overall functional mobilities and safety. Pt currently require SBA for transfers and MIN A X 1 for gait ambulation activities. Skilled P.T service is warranted to improve strength and balance to increase safety and functional mobility independence. Recommend SNF for further rehab at [place]. Pt is cleared for OOB activities with nursing. Thank you for this referral.
[2018-10-16 12:00] VITALS: BP 103/63
--- NOTE | 2018-10-16 12:01 | General Progress Note ---
Assessment/Plan Problem List: (1) Acute metabolic encephalopathy ICD Codes: G93.41 - Metabolic encephalopathy SNOMED: 40052137, [id number] Status: not improved Assessment/Plan Zyprexa 5mg po tid Prozac 20mg Klonopin 1mg po qhs Haldol Im prn Ativan IM prn the pt lacks capacity to make decisions. the pt is awaiting placement. Subjective Neurologic/Psychiatric: Reports: anxiety Allergies: Coded Allergies: No Known Allergies (Unverified , 10/09/18) Subjective cont to be agitated cont to be confused not following command disorganized and delusional Objective Last 24 Hour Vital Signs Date Time Temp Pulse Resp B/P (MAP) Pulse Ox O2 Delivery O2 Flow Rate FiO2 10/16/18 09:28 80 120/64 10/16/18 09:00 Room Air 10/16/18 08:00 98.8 80 20 120/64 (82) 94 10/16/18 04:00 98.5 97 18 126/73 (90) 95 10/16/18 00:00 98.3 56 16 115/54 (74) 94 10/15/18 21:00 Room Air 10/15/18 20:01 98.4 65 16 111/55 (73) 95 10/15/18 16:00 98.8 84 18 124/66 (85) Intake and Output 10/15/18 10/16/18 19:00 07:00 Intake Total 1620 ml 825 ml Output Total 800 ml Balance 820 ml 825 ml Intake Oral 720 ml IV Total 900 ml 825 ml Output Urine Total 800 ml # Voids 2 Laboratory Tests 10/16/18 05:51: White Blood Count 4.4L, Red Blood Count 4.26, Hemoglobin 12.2, Hematocrit 37.4, Mean Corpuscular Volume 88, Mean Corpuscular Hemoglobin 28.6, Mean Corpuscular Hemoglobin Concent 32.6, Red Cell Distribution Width 13.3, Platelet Count 203, Mean Platelet Volume 6.5, Neutrophils (%) (Auto) 71.6, Lymphocytes (%) (Auto) 15.4L, Monocytes (%) (Auto) 9.3, Eosinophils (%) (Auto) 2.9, Basophils (%) (Auto ) 0.9, Sodium Level 142, Potassium Level 3.4L, Chloride Level 107, Carbon Dioxide Level 27, Anion Gap 8, Blood Urea Nitrogen 12, Creatinine 0.6, Estimat Glomerular Filtration Rate , Glucose Level 103, Calcium Level 9.1 Height (Feet): 5 Height (Inches): 4.00 Weight (Pounds): 111 General Appearance: alert, confused, agitated Abby Duffy MD Oct 16, 2018 12:01
--- NOTE | 2018-10-16 13:14 | NUR ---
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
--- NOTE | 2018-10-16 13:50 | Pulmonology Progress Note ---
Assessment/Plan Problems: (1) Acute delirium (2) Encephalopathy acute (3) History of hypertension (4) Alzheimer's dementia Assessment/Plan all reviewed doing better more awake no new complains improving asymptomatic pt/ot symptomatic treatment f/u psych recommendations Subjective ROS Limited/Unobtainable: No Constitutional: Reports: no symptoms HEENT: Repors: no symptoms Respiratory: Reports: no symptoms Allergies: Coded Allergies: No Known Allergies (Unverified , 10/09/18) Objective Last 24 Hour Vital Signs Date Time Temp Pulse Resp B/P (MAP) Pulse Ox O2 Delivery O2 Flow Rate FiO2 10/16/18 09:28 80 120/64 10/16/18 09:00 Room Air 10/16/18 08:00 98.8 80 20 120/64 (82) 94 10/16/18 04:00 98.5 97 18 126/73 (90) 95 10/16/18 00:00 98.3 56 16 115/54 (74) 94 10/15/18 21:00 Room Air 10/15/18 20:01 98.4 65 16 111/55 (73) 95 10/15/18 16:00 98.8 84 18 124/66 (85) Intake and Output 10/15/18 10/16/18 18:59 06:59 Intake Total 1545 ml 900 ml Output Total 800 ml Balance 745 ml 900 ml Intake Oral 720 ml IV Total 825 ml 900 ml Output Urine Total 800 ml # Voids 2 General Appearance: WD/WN HEENT: normocephalic, atraumatic Respiratory/Chest: chest wall non-tender, lungs clear Breasts: no masses Cardiovascular: normal rate, regular rhythm Abdomen: normal bowel sounds, soft, non tender Extremities: no cyanosis, no clubbing Skin: no rash Laboratory Tests 10/16/18 05:51: White Blood Count 4.4L, Red Blood Count 4.26, Hemoglobin 12.2, Hematocrit 37.4, Mean Corpuscular Volume 88, Mean Corpuscular Hemoglobin 28.6, Mean Corpuscular Hemoglobin Concent 32.6, Red Cell Distribution Width 13.3, Platelet Count 203, Mean Platelet Volume 6.5, Neutrophils (%) (Auto) 71.6, Lymphocytes (%) (Auto) 15.4L, Monocytes (%) (Auto) 9.3, Eosinophils (%) (Auto) 2.9, Basophils (%) (Auto ) 0.9, Sodium Level 142, Potassium Level 3.4L, Chloride Level 107, Carbon Dioxide Level 27, Anion Gap 8, Blood Urea Nitrogen 12, Creatinine 0.6, Estimat Glomerular Filtration Rate , Glucose Level 103, Calcium Level 9.1 Current Medications Medications (Trade) Dose Ordered Sig/Elton Route PRN Reason Start Time Stop Time Status Last Admin Dose Admin Acetaminophen (Tylenol) 650 mg Q6H PRN ORAL Prn Pain/Headache/Temp > 101 10/11/18 00:30 11/10/18 00:29 Amlodipine Besylate (Norvasc) 2.5 mg DAILY ORAL 10/11/18 09:00 11/10/18 08:59 10/16/18 09:28 Clonazepam (KlonoPIN) 1 mg BEDTIME ORAL 10/15/18 21:00 10/22/18 20:59 10/15/18 22:32 Dextrose/Sodium Chloride 1,000 ml @ 75 mls/hr [id number] IV 10/11/18 00:45 11/10/18 00:44 10/15/18 22:34 Fluoxetine HCl (PROzac) 20 mg DAILY ORAL 10/15/18 12:15 11/14/18 12:14 10/16/18 09:28 Haloperidol Lactate (Haldol) 5 mg Q6H PRN IM Agitation 10/11/18 11:00 11/10/18 10:59 10/15/18 13:19 Heparin Sodium (Porcine) (Heparin 5000 units/ml) 5,000 units EVERY 8 HOURS SUBQ 10/11/18 14:00 11/10/18 13:59 10/16/18 05:06 Lorazepam (Ativan 2mg/ml 1ml) 1 mg Q4H PRN IM For Anxiety 10/11/18 19:00 10/18/18 18:59 10/16/18 04:16 Lorazepam (Ativan) 2 mg Q6H PRN ORAL For Anxiety 10/12/18 12:00 10/19/18 11:59 10/16/18 10:23 Olanzapine (ZyPREXA) 5 mg Q8HR ORAL 10/12/18 13:00 11/11/18 12:59 10/16/18 05:05 Elmer Little MD Oct 16, 2018 13:50
[2018-10-16] MEDS: Haloperidol 5mg/ml Inj IM PRN (14:37)
[2018-10-16] MEDS: D5 1/2NS 1,000 ML IV SCH (15:42)
[2018-10-16 16:00] VITALS: BP 142/76
--- NOTE | 2018-10-16 16:47 | NUR ---
INSURANCE UPDATED CLINICALS AND REVIEWS HAVE BEEN FAXED TO: [facility] P:[phone] F: [phone] Addendum: 10/16/18 at 1649 by Daja Brown CM DC SUMMARY FAXED WELL
--- NOTE | 2018-10-16 19:16 | Internal Med Progress Note ---
Subjective Date of Service: Oct 16, 2018 Physician Name Aristides Tenorio Attending Physician Perfecto Forrest MD Current Medications Medications (Trade) Dose Ordered Sig/Elton Route PRN Reason Start Time Stop Time Status Last Admin Dose Admin Acetaminophen (Tylenol) 650 mg Q6H PRN ORAL Prn Pain/Headache/Temp > 101 10/11/18 00:30 11/10/18 00:29 Amlodipine Besylate (Norvasc) 2.5 mg DAILY ORAL 10/11/18 09:00 11/10/18 08:59 10/16/18 09:28 Clonazepam (KlonoPIN) 1 mg BEDTIME ORAL 10/15/18 21:00 10/22/18 20:59 10/15/18 22:32 Dextrose/Sodium Chloride 1,000 ml @ 75 mls/hr [id number] IV 10/11/18 00:45 11/10/18 00:44 10/16/18 15:42 Fluoxetine HCl (PROzac) 20 mg DAILY ORAL 10/15/18 12:15 11/14/18 12:14 10/16/18 09:28 Haloperidol Lactate (Haldol) 5 mg Q6H PRN IM Agitation 10/11/18 11:00 11/10/18 10:59 10/16/18 14:37 Heparin Sodium (Porcine) (Heparin 5000 units/ml) 5,000 units EVERY 8 HOURS SUBQ 10/11/18 14:00 11/10/18 13:59 10/16/18 14:38 Lorazepam (Ativan 2mg/ml 1ml) 1 mg Q4H PRN IM For Anxiety 10/11/18 19:00 10/18/18 18:59 10/16/18 04:16 Lorazepam (Ativan) 2 mg Q6H PRN ORAL For Anxiety 10/12/18 12:00 10/19/18 11:59 10/16/18 10:23 Olanzapine (ZyPREXA) 5 mg Q8HR ORAL 10/12/18 13:00 11/11/18 12:59 10/16/18 14:37 Allergies: Coded Allergies: No Known Allergies (Unverified , 10/09/18) ROS Limited/Unobtainable: Yes Subjective 73 YO F admitted with altered mental status. Cover for Int Med Dr Forrest. Await SNF placement Objective Last Vital Signs Date Time Temp Pulse Resp B/P (MAP) Pulse Ox O2 Delivery O2 Flow Rate FiO2 10/16/18 16:00 97.8 84 18 142/76 (98) 95 10/16/18 09:00 Room Air Laboratory Tests Test 10/16/18 05:51 White Blood Count 4.4 K/UL (4.8-10.8) L Red Blood Count 4.26 M/UL (4.20-5.40) Hemoglobin 12.2 G/DL (12.0-16.0) Hematocrit 37.4 % (37.0-47.0) Mean Corpuscular Volume 88 FL (80-99) Mean Corpuscular Hemoglobin 28.6 PG (27.0-31.0) Mean Corpuscular Hemoglobin Concent 32.6 G/DL (32.0-36.0) Red Cell Distribution Width 13.3 % (11.6-14.8) Platelet Count 203 K/UL (150-450) Mean Platelet Volume 6.5 FL (6.5-10.1) Neutrophils (%) (Auto) 71.6 % (45.0-75.0) Lymphocytes (%) (Auto) 15.4 % (20.0-45.0) L Monocytes (%) (Auto) 9.3 % (1.0-10.0) Eosinophils (%) (Auto) 2.9 % (0.0-3.0) Basophils (%) (Auto) 0.9 % (0.0-2.0) Sodium Level 142 MMOL/L (136-145) Potassium Level 3.4 MMOL/L (3.5-5.1) L Chloride Level 107 MMOL/L (98-107) Carbon Dioxide Level 27 MMOL/L (21-32) Anion Gap 8 mmol/L (5-15) Blood Urea Nitrogen 12 mg/dL (7-18) Creatinine 0.6 MG/DL (0.55-1.30) Estimat Glomerular Filtration Rate mL/min (>60) Glucose Level 103 MG/DL (74-106) Calcium Level 9.1 MG/DL (8.5-10.1) Intake and Output 10/15/18 10/16/18 18:59 06:59 Intake Total 1545 ml 900 ml Output Total 800 ml Balance 745 ml 900 ml Intake Oral 720 ml IV Total 825 ml 900 ml Output Urine Total 800 ml # Voids 2 Objective PHYSICAL EXAMINATION: GENERAL: The patient is awake and arousable, however, cannot follow commands. HEAD AND NECK: Pupils are equal to light and anicteric. Neck was supple. No JVD. LUNGS: No wheeze or rhonchi. Decreased air in the bases. Poor inspiratory effort. HEART: S1 and S2. Distant heart sounds. No murmur or gallops. ABDOMEN: Soft, nondistended, and nontender. Positive bowel sounds. EXTREMITIES: No cyanosis, clubbing, or edema. NEUROLOGIC: Very limited secondary to the patient's status. The patient is moving all the extremities spontaneously, however, cannot follow commands. Assessment/Plan Assessment/Plan ASSESSMENT: 1. Altered mental status, most likely secondary to toxic encephalopathy as a result of medication induced. 2. Hypertension. 3. Severe agitation in the past. 4. Mild dehydration with prerenal azotemia. PLAN: 1. Admit the patient to medical floor. 2. We will follow up with psychiatry consultation with Dr. Abby Duffy. 3. We will follow up with Dr. Little recommendation. 4. IV hydration. 5. Code status is Full Code at this time. 6. We will monitor patient with one-to-one sitter. 7. DVT prophylaxis, heparin subcutaneous 8. Discharge planning: [facility]. Await intermediate facility bed Aristides Tenorio MD Oct 16, 2018 19:15
--- NOTE | 2018-10-16 19:43 | NUR ---
HAND-OFF: Report given to MICHELLE Johnson.
[2018-10-16 20:00] VITALS: BP 123/69
--- NOTE | 2018-10-16 20:03 | NUR ---
NURSE NOTES: Received patient awake in bed, no s/s of acute distress. Bilateral soft wrist restraints noted, peripheral pulses present. Bed on lowest position, 3 siderails up. IV site infiltrated, will attempt to put in new IV line.
[2018-10-17] VITALS (7 sets, daily range): BP systolic 100–153; BP diastolic 55–96
[2018-10-17] MEDS: LORazepam 1mg tab ORAL PRN (02:05)
[2018-10-17] MEDS: D5 1/2NS 1,000 ML IV SCH ×2 (03:25→18:01)
[2018-10-17] MEDS: Heparin 5000 units/ml inj SUBQ SCH ×3 (05:11→21:19)
--- NOTE | 2018-10-17 07:23 | NUR ---
HAND-OFF: Report given to MICHELLE Diaz.
--- NOTE | 2018-10-17 07:31 | NUR ---
NURSE NOTES: Patient confused, on soft restrain on both wrists; on room air, no sign of shortness of breath, no sign of distress; no sign of chest pain; IV RFA fluid running; bed at lowest position, side rails up x2, breaks engaged, bed alarm on. Will keep monitoring.
[2018-10-17 07:46] LABS: BASOPHILS % (AUTO) 1.2 % (0.0-2.0); EOSINOPHILS % (AUTO) 2.5 % (0.0-3.0); HEMATOCRIT 38.1 % (37.0-47.0); HEMOGLOBIN 12.5 G/DL (12.0-16.0); LYMPHOCYTES % (AUTO) 24.5 % (20.0-45.0); MEAN CORPUSCULAR VOLUME 87 FL (80-99); MONOCYTES % (AUTO) 8.1 % (1.0-10.0); NEUTROPHILS % (AUTO) 63.8 % (45.0-75.0); PLATELET COUNT 188 K/UL (150-450); RED BLOOD COUNT 4.38 M/UL (4.20-5.40); RED CELL DISTRIBUTION WIDTH 13.3 % (11.6-14.8); WHITE BLOOD COUNT 4.1 K/UL (4.8-10.8)
[2018-10-17 07:58] LABS: ANION GAP 8 mmol/L (5-15); BLOOD UREA NITROGEN 7 mg/dL (7-18); CARBON DIOXIDE 27 MMOL/L (21-32); CHLORIDE 106 MMOL/L (98-107); CREATININE 0.5 MG/DL (0.55-1.30); POTASSIUM 3.5 MMOL/L (3.5-5.1); SODIUM 140 MMOL/L (136-145)
--- NOTE | 2018-10-17 11:52 | General Progress Note ---
Assessment/Plan Problem List: (1) Acute metabolic encephalopathy ICD Codes: G93.41 - Metabolic encephalopathy SNOMED: 82670513, [id number] Status: progressing Assessment/Plan Zyprexa 5mg po tid Prozac 20mg Klonopin 1mg po qhs Haldol Im prn Ativan IM prn the pt lacks capacity to make decisions. the pt is awaiting placement. Subjective Allergies: Coded Allergies: No Known Allergies (Unverified , 10/09/18) Subjective cont to be agitated however less than before cont to be confused not following command disorganized and delusional Objective Last 24 Hour Vital Signs Date Time Temp Pulse Resp B/P (MAP) Pulse Ox O2 Delivery O2 Flow Rate FiO2 10/17/18 09:22 71 138/75 10/17/18 09:00 Room Air 10/17/18 08:00 98.6 71 19 138/75 (96) 95 10/17/18 04:00 97.6 90 18 118/78 (91) 97 10/17/18 00:00 97.5 60 16 120/84 (96) 96 10/16/18 21:00 Room Air 10/16/18 20:00 98.5 74 18 123/69 (87) 95 10/16/18 16:00 97.8 84 18 142/76 (98) 95 10/16/18 12:00 98.5 102 20 103/63 (76) 95 Intake and Output 10/16/18 10/17/18 19:00 07:00 Intake Total 750 ml 450 ml Balance 750 ml 450 ml Intake Oral 75 ml IV Total 675 ml 450 ml # Voids 3 2 Laboratory Tests 10/17/18 06:25: White Blood Count 4.1L, Red Blood Count 4.38, Hemoglobin 12.5, Hematocrit 38.1, Mean Corpuscular Volume 87, Mean Corpuscular Hemoglobin 28.5, Mean Corpuscular Hemoglobin Concent 32.8, Red Cell Distribution Width 13.3, Platelet Count 188, Mean Platelet Volume 6.4L, Neutrophils (%) (Auto) 63.8, Lymphocytes (%) (Auto) 24.5, Monocytes (%) (Auto) 8.1, Eosinophils (%) (Auto) 2.5, Basophils (%) (Auto ) 1.2, Sodium Level 140, Potassium Level 3.5, Chloride Level 106, Carbon Dioxide Level 27, Anion Gap 8, Blood Urea Nitrogen 7, Creatinine 0.5L, Estimat Glomerular Filtration Rate , Glucose Level 99, Calcium Level 9.0 Height (Feet): 5 Height (Inches): 4.00 Weight (Pounds): 111 General Appearance: alert, confused, agitated Abby Duffy MD Oct 17, 2018 11:52
--- NOTE | 2018-10-17 14:36 | NUR ---
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
--- NOTE | 2018-10-17 15:05 | NUR ---
NURSE NOTES: Dr Clive HAMMONDS soft restrain order and sitter at the bed side.
--- NOTE | 2018-10-17 15:15 | Pulmonology Progress Note ---
Assessment/Plan Problems: (1) Acute delirium (2) Encephalopathy acute (3) History of hypertension (4) Alzheimer's dementia Assessment/Plan off restrains more calm doing better more awake no new complains improving asymptomatic pt/ot symptomatic treatment f/u psych recommendations Subjective ROS Limited/Unobtainable: No Constitutional: Reports: no symptoms HEENT: Repors: no symptoms Respiratory: Reports: no symptoms Allergies: Coded Allergies: No Known Allergies (Unverified , 10/09/18) Objective Last 24 Hour Vital Signs Date Time Temp Pulse Resp B/P (MAP) Pulse Ox O2 Delivery O2 Flow Rate FiO2 10/17/18 12:00 98.7 89 18 153/96 (115) 96 10/17/18 09:22 71 138/75 10/17/18 09:00 Room Air 10/17/18 08:00 98.6 71 19 138/75 (96) 95 10/17/18 04:00 97.6 90 18 118/78 (91) 97 10/17/18 00:00 97.5 60 16 120/84 (96) 96 10/16/18 21:00 Room Air 10/16/18 20:00 98.5 74 18 123/69 (87) 95 10/16/18 16:00 97.8 84 18 142/76 (98) 95 Intake and Output 10/16/18 10/17/18 19:00 07:00 Intake Total 750 ml 450 ml Balance 750 ml 450 ml Intake Oral 75 ml IV Total 675 ml 450 ml # Voids 3 2 General Appearance: WD/WN, no acute distress HEENT: normocephalic, atraumatic Respiratory/Chest: chest wall non-tender Breasts: no masses Cardiovascular: normal peripheral pulses Abdomen: normal bowel sounds Genitourinary: normal external genitalia Skin: no rash Laboratory Tests 10/17/18 06:25: White Blood Count 4.1L, Red Blood Count 4.38, Hemoglobin 12.5, Hematocrit 38.1, Mean Corpuscular Volume 87, Mean Corpuscular Hemoglobin 28.5, Mean Corpuscular Hemoglobin Concent 32.8, Red Cell Distribution Width 13.3, Platelet Count 188, Mean Platelet Volume 6.4L, Neutrophils (%) (Auto) 63.8, Lymphocytes (%) (Auto) 24.5, Monocytes (%) (Auto) 8.1, Eosinophils (%) (Auto) 2.5, Basophils (%) (Auto ) 1.2, Sodium Level 140, Potassium Level 3.5, Chloride Level 106, Carbon Dioxide Level 27, Anion Gap 8, Blood Urea Nitrogen 7, Creatinine 0.5L, Estimat Glomerular Filtration Rate , Glucose Level 99, Calcium Level 9.0 Current Medications Medications (Trade) Dose Ordered Sig/Elton Route PRN Reason Start Time Stop Time Status Last Admin Dose Admin Acetaminophen (Tylenol) 650 mg Q6H PRN ORAL Prn Pain/Headache/Temp > 101 10/11/18 00:30 11/10/18 00:29 Amlodipine Besylate (Norvasc) 2.5 mg DAILY ORAL 10/11/18 09:00 11/10/18 08:59 10/17/18 09:22 Clonazepam (KlonoPIN) 1 mg BEDTIME ORAL 10/15/18 21:00 10/22/18 20:59 10/16/18 20:56 Dextrose/Sodium Chloride 1,000 ml @ 75 mls/hr [id number] IV 10/11/18 00:45 11/10/18 00:44 10/16/18 15:42 Fluoxetine HCl (PROzac) 20 mg DAILY ORAL 10/15/18 12:15 11/14/18 12:14 10/17/18 09:22 Haloperidol Lactate (Haldol) 5 mg Q6H PRN IM Agitation 10/11/18 11:00 11/10/18 10:59 10/16/18 14:37 Heparin Sodium (Porcine) (Heparin 5000 units/ml) 5,000 units EVERY 8 HOURS SUBQ 10/11/18 14:00 11/10/18 13:59 10/17/18 13:19 Lorazepam (Ativan 2mg/ml 1ml) 1 mg Q4H PRN IM For Anxiety 10/11/18 19:00 10/18/18 18:59 10/16/18 04:16 Lorazepam (Ativan) 2 mg Q6H PRN ORAL For Anxiety 10/12/18 12:00 10/19/18 11:59 10/17/18 02:05 Olanzapine (ZyPREXA) 5 mg Q8HR ORAL 10/12/18 13:00 11/11/18 12:59 10/17/18 13:18 Elmer Little MD Oct 17, 2018 15:15
--- NOTE | 2018-10-17 16:17 | NUR ---
NURSE NOTES:WOUND CARE NOTES:Pt presented on admission with pressure injuries to R and L elbows. Partial thickness wound L elbow .Base of wound is moist granular with macerated borders. Periwound indurated with non-blanchable erythema .Slightly elevated skin temp periwound .Pt is confused but did not exhibit any distress when minimally palpated. No odor or exudate noted. Non-blanchable erythema with small partial thickness wound centrally noted to R elbow. Base of wound indurated .Periwound without erythema or induration.. Sacrum without erythema. Both heels are pink and firm. Recommendations:Cleanse L elbow with Saline. Apply Silvasorb gel.Apply Cavilon Skin BArrier periwound .Cover with Optifoam drsg .Change every 3 days and prn. Apply Cavilon Skin BArrier to R elbow .Cover with Optifoam Q 7 days and prn. Apply moisture Barrier to sacrum. Cover with Optifoam drsg.Change every 3 days and prn. Reposition at least every 2hours or as tolerated. Off-load heels with pillow.
--- NOTE | 2018-10-17 18:21 | Internal Med Progress Note ---
Subjective Date of Service: Oct 17, 2018 Physician Name Aristides Tenorio Attending Physician Perfecto Forrest MD Current Medications Medications (Trade) Dose Ordered Sig/Elton Route PRN Reason Start Time Stop Time Status Last Admin Dose Admin Acetaminophen (Tylenol) 650 mg Q6H PRN ORAL Prn Pain/Headache/Temp > 101 10/11/18 00:30 11/10/18 00:29 Amlodipine Besylate (Norvasc) 2.5 mg DAILY ORAL 10/11/18 09:00 11/10/18 08:59 10/17/18 09:22 Clonazepam (KlonoPIN) 1 mg BEDTIME ORAL 10/15/18 21:00 10/22/18 20:59 10/16/18 20:56 Dextrose/Sodium Chloride 1,000 ml @ 75 mls/hr [id number] IV 10/11/18 00:45 11/10/18 00:44 10/17/18 18:01 Fluoxetine HCl (PROzac) 20 mg DAILY ORAL 10/15/18 12:15 11/14/18 12:14 10/17/18 09:22 Haloperidol Lactate (Haldol) 5 mg Q6H PRN IM Agitation 10/11/18 11:00 11/10/18 10:59 10/16/18 14:37 Heparin Sodium (Porcine) (Heparin 5000 units/ml) 5,000 units EVERY 8 HOURS SUBQ 10/11/18 14:00 11/10/18 13:59 10/17/18 13:19 Lorazepam (Ativan 2mg/ml 1ml) 1 mg Q4H PRN IM For Anxiety 10/11/18 19:00 10/18/18 18:59 10/16/18 04:16 Lorazepam (Ativan) 2 mg Q6H PRN ORAL For Anxiety 10/12/18 12:00 10/19/18 11:59 10/17/18 02:05 Olanzapine (ZyPREXA) 5 mg Q8HR ORAL 10/12/18 13:00 11/11/18 12:59 10/17/18 13:18 Allergies: Coded Allergies: No Known Allergies (Unverified , 10/09/18) ROS Limited/Unobtainable: Yes Subjective 73 YO F admitted with altered mental status. Cover for Int Med Dr Forrest. Await SNF placement Objective Last Vital Signs Date Time Temp Pulse Resp B/P (MAP) Pulse Ox O2 Delivery O2 Flow Rate FiO2 10/17/18 16:00 99.0 92 19 145/90 (108) 94 10/17/18 09:00 Room Air Laboratory Tests Test 10/17/18 06:25 White Blood Count 4.1 K/UL (4.8-10.8) L Red Blood Count 4.38 M/UL (4.20-5.40) Hemoglobin 12.5 G/DL (12.0-16.0) Hematocrit 38.1 % (37.0-47.0) Mean Corpuscular Volume 87 FL (80-99) Mean Corpuscular Hemoglobin 28.5 PG (27.0-31.0) Mean Corpuscular Hemoglobin Concent 32.8 G/DL (32.0-36.0) Red Cell Distribution Width 13.3 % (11.6-14.8) Platelet Count 188 K/UL (150-450) Mean Platelet Volume 6.4 FL (6.5-10.1) L Neutrophils (%) (Auto) 63.8 % (45.0-75.0) Lymphocytes (%) (Auto) 24.5 % (20.0-45.0) Monocytes (%) (Auto) 8.1 % (1.0-10.0) Eosinophils (%) (Auto) 2.5 % (0.0-3.0) Basophils (%) (Auto) 1.2 % (0.0-2.0) Sodium Level 140 MMOL/L (136-145) Potassium Level 3.5 MMOL/L (3.5-5.1) Chloride Level 106 MMOL/L (98-107) Carbon Dioxide Level 27 MMOL/L (21-32) Anion Gap 8 mmol/L (5-15) Blood Urea Nitrogen 7 mg/dL (7-18) Creatinine 0.5 MG/DL (0.55-1.30) L Estimat Glomerular Filtration Rate mL/min (>60) Glucose Level 99 MG/DL (74-106) Calcium Level 9.0 MG/DL (8.5-10.1) Intake and Output 10/16/18 10/17/18 18:59 06:59 Intake Total 750 ml 450 ml Balance 750 ml 450 ml Intake Oral 75 ml IV Total 675 ml 450 ml # Voids 3 2 Objective PHYSICAL EXAMINATION: GENERAL: The patient is awake and arousable, however, cannot follow commands. HEAD AND NECK: Pupils are equal to light and anicteric. Neck was supple. No JVD. LUNGS: No wheeze or rhonchi. Decreased air in the bases. Poor inspiratory effort. HEART: S1 and S2. Distant heart sounds. No murmur or gallops. ABDOMEN: Soft, nondistended, and nontender. Positive bowel sounds. EXTREMITIES: No cyanosis, clubbing, or edema. NEUROLOGIC: Very limited secondary to the patient's status. The patient is moving all the extremities spontaneously, however, cannot follow commands. Assessment/Plan Assessment/Plan ASSESSMENT: 1. Altered mental status, most likely secondary to toxic encephalopathy as a result of medication induced. 2. Hypertension. 3. Severe agitation in the past. 4. Mild dehydration with prerenal azotemia. PLAN: 1. Admit the patient to medical floor. 2. We will follow up with psychiatry consultation with Dr. Abby Duffy. 3. We will follow up with Dr. Little recommendation. 4. IV hydration. 5. Code status is Full Code at this time. 6. We will monitor patient with one-to-one sitter. 7. DVT prophylaxis, heparin subcutaneous 8. Discharge planning: [facility]. Await longterm facility bed Aristides Tenorio MD Oct 17, 2018 18:21
--- NOTE | 2018-10-17 19:00 | NUR ---
NURSE NOTES:Patient asleep in bed when received .Sitter 1:1 at bedside. patient vss, afebrile . no sob/ no N/V Noted . RFA IVF with D5 1/2NS at 75 cc/hr. infusing well . left and right elbow wound dressing C/D/I/.call light within reach . bed in low position at all times . Bed alarm on. will continue to monitor. Addendum: 10/17/18 at 2210 by MICHELLE KANG LVN Patient RFA g#22 IVF infusing well . Patient Faroese speaking.
--- NOTE | 2018-10-17 19:39 | NUR ---
HAND-OFF: Report given to MICHELLE Barton.
--- NOTE | 2018-10-17 19:40 | NUR ---
NURSE NOTES: Received patient in bed. A&OX1. IV site patent and intact. Sitter at bedside. Bed in lowest position. Call light within reach. Will continue to monitor.
[2018-10-18 04:00] VITALS: BP 140/69
[2018-10-18] MEDS: D5 1/2NS 1,000 ML IV SCH ×2 (05:33→21:23)
[2018-10-18] MEDS: Heparin 5000 units/ml inj SUBQ SCH ×3 (05:33→21:24)
[2018-10-18 06:43] LABS: BASOPHILS % (AUTO) 1.4 % (0.0-2.0); EOSINOPHILS % (AUTO) 1.6 % (0.0-3.0); HEMATOCRIT 34.7 % (37.0-47.0); HEMOGLOBIN 11.4 G/DL (12.0-16.0); LYMPHOCYTES % (AUTO) 14.7 % (20.0-45.0); MEAN CORPUSCULAR VOLUME 87 FL (80-99); MONOCYTES % (AUTO) 8.7 % (1.0-10.0); NEUTROPHILS % (AUTO) 73.6 % (45.0-75.0); PLATELET COUNT 172 K/UL (150-450); RED BLOOD COUNT 3.99 M/UL (4.20-5.40); RED CELL DISTRIBUTION WIDTH 12.8 % (11.6-14.8); WHITE BLOOD COUNT 3.5 K/UL (4.8-10.8)
[2018-10-18 06:58] LABS: ANION GAP 7 mmol/L (5-15); BLOOD UREA NITROGEN 7 mg/dL (7-18); CALCIUM 8.8 MG/DL (8.5-10.1); CARBON DIOXIDE 27 MMOL/L (21-32); CHLORIDE 107 MMOL/L (98-107); CREATININE 0.5 MG/DL (0.55-1.30); POTASSIUM 3.5 MMOL/L (3.5-5.1); SODIUM 141 MMOL/L (136-145)
--- NOTE | 2018-10-18 07:30 | NUR ---
HAND-OFF: Report given to Omero MARTINEZ.
[2018-10-18 08:00] VITALS: BP 134/73
--- NOTE | 2018-10-18 09:00 | NUR ---
NURSE NOTES: Received patient in bed. A&OX1. IV site patent and intact. Sitter at bedside. on fall precaution , Bed in lowest position. Call light within reach. Will continue to monitor. amaury herman
[2018-10-18] MEDS: Haloperidol 5mg/ml Inj IM PRN (09:14)
--- NOTE | 2018-10-18 09:14 | NUR ---
nurse notes very agitated haldol given IM, with relief amaury herman
[2018-10-18 12:00] VITALS: BP 139/69
--- NOTE | 2018-10-18 12:24 | NUR ---
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
--- NOTE | 2018-10-18 13:11 | Pulmonology Progress Note ---
Assessment/Plan Problems: (1) Acute delirium (2) Encephalopathy acute (3) History of hypertension (4) Alzheimer's dementia Assessment/Plan all reviewed doing better more awake no new complains improving asymptomatic pt/ot symptomatic treatment f/u psych recommendations Subjective ROS Limited/Unobtainable: No Constitutional: Reports: no symptoms HEENT: Repors: no symptoms Allergies: Coded Allergies: No Known Allergies (Unverified , 10/09/18) Objective Last 24 Hour Vital Signs Date Time Temp Pulse Resp B/P (MAP) Pulse Ox O2 Delivery O2 Flow Rate FiO2 10/18/18 12:00 97.5 69 18 139/69 (92) 97 10/18/18 09:00 Room Air 10/18/18 08:58 65 140/69 10/18/18 08:00 97.3 73 18 134/73 (93) 97 10/18/18 04:00 97.2 65 20 140/69 (92) 97 10/17/18 23:55 97.0 58 20 100/55 (70) 97 10/17/18 21:00 Room Air 10/17/18 19:56 97.4 69 20 112/63 (79) 96 10/17/18 16:00 99.0 92 19 145/90 (108) 94 Intake and Output 10/17/18 10/18/18 19:00 07:00 Intake Total 855 ml 1460 ml Balance 855 ml 1460 ml Intake Oral 480 ml 560 ml IV Total 375 ml 900 ml # Voids 2 4 Objective General Appearance: WD/WN, no acute distress HEENT: normocephalic, atraumatic Respiratory/Chest: chest wall non-tender Breasts: no masses Cardiovascular: normal peripheral pulses Abdomen: normal bowel sounds Genitourinary: normal external genitalia Skin: no rash Laboratory Tests 10/18/18 05:35: White Blood Count 3.5L, Red Blood Count 3.99L, Hemoglobin 11.4L, Hematocrit 34.7L, Mean Corpuscular Volume 87, Mean Corpuscular Hemoglobin 28.7, Mean Corpuscular Hemoglobin Concent 33.0, Red Cell Distribution Width 12.8, Platelet Count 172, Mean Platelet Volume 6.5, Neutrophils (%) (Auto) 73.6, Lymphocytes (% ) (Auto) 14.7L, Monocytes (%) (Auto) 8.7, Eosinophils (%) (Auto) 1.6, Basophils (%) (Auto) 1.4, Sodium Level 141, Potassium Level 3.5, Chloride Level 107, Carbon Dioxide Level 27, Anion Gap 7, Blood Urea Nitrogen 7, Creatinine 0.5L, Estimat Glomerular Filtration Rate , Glucose Level 107H, Calcium Level 8.8 Current Medications Medications (Trade) Dose Ordered Sig/Elton Route PRN Reason Start Time Stop Time Status Last Admin Dose Admin Acetaminophen (Tylenol) 650 mg Q6H PRN ORAL Prn Pain/Headache/Temp > 101 10/11/18 00:30 11/10/18 00:29 Amlodipine Besylate (Norvasc) 2.5 mg DAILY ORAL 10/11/18 09:00 11/10/18 08:59 10/18/18 08:58 Clonazepam (KlonoPIN) 1 mg BEDTIME ORAL 10/15/18 21:00 10/22/18 20:59 10/17/18 21:15 Dextrose/Sodium Chloride 1,000 ml @ 75 mls/hr [id number] IV 10/11/18 00:45 11/10/18 00:44 10/18/18 05:33 Fluoxetine HCl (PROzac) 20 mg DAILY ORAL 10/15/18 12:15 11/14/18 12:14 10/18/18 08:58 Haloperidol Lactate (Haldol) 5 mg Q6H PRN IM Agitation 10/11/18 11:00 11/10/18 10:59 10/18/18 09:14 Heparin Sodium (Porcine) (Heparin 5000 units/ml) 5,000 units EVERY 8 HOURS SUBQ 10/11/18 14:00 11/10/18 13:59 10/18/18 05:33 Lorazepam (Ativan 2mg/ml 1ml) 1 mg Q4H PRN IM For Anxiety 10/11/18 19:00 10/18/18 18:59 10/16/18 04:16 Lorazepam (Ativan) 2 mg Q6H PRN ORAL For Anxiety 10/12/18 12:00 10/19/18 11:59 10/17/18 02:05 Olanzapine (ZyPREXA) 5 mg Q8HR ORAL 10/12/18 13:00 11/11/18 12:59 10/18/18 05:33 Elmer Little MD Oct 18, 2018 13:11
[2018-10-18] MEDS ORDERED: CLONAZEPAM1 M2 ORAL (13:21)
[2018-10-18] MEDS ORDERED: FLUOXETINE HCL20 MG ORAL (13:21)
[2018-10-18] MEDS ORDERED: OLANZAPINE5 MG ORAL (13:21)
[2018-10-18] MEDS ORDERED: ATIVAN1 MG ORAL (13:21)
--- NOTE | 2018-10-18 15:03 | General Progress Note ---
Assessment/Plan Problem List: (1) Acute metabolic encephalopathy ICD Codes: G93.41 - Metabolic encephalopathy SNOMED: 37050007, [id number] Assessment/Plan Zyprexa 5mg po tid Prozac 20mg Klonopin 1mg po qhs Haldol Im prn Ativan IM prn the pt lacks capacity to make decisions. script was given Subjective Neurologic/Psychiatric: Reports: anxiety Allergies: Coded Allergies: No Known Allergies (Unverified , 10/09/18) Subjective cont to be agitated cont to be confused not following command disorganized and delusional Objective Last 24 Hour Vital Signs Date Time Temp Pulse Resp B/P (MAP) Pulse Ox O2 Delivery O2 Flow Rate FiO2 10/18/18 12:00 97.5 69 18 139/69 (92) 97 10/18/18 09:00 Room Air 10/18/18 08:58 65 140/69 10/18/18 08:00 97.3 73 18 134/73 (93) 97 10/18/18 04:00 97.2 65 20 140/69 (92) 97 10/17/18 23:55 97.0 58 20 100/55 (70) 97 10/17/18 21:00 Room Air 10/17/18 19:56 97.4 69 20 112/63 (79) 96 10/17/18 16:00 99.0 92 19 145/90 (108) 94 Intake and Output 10/17/18 10/18/18 19:00 07:00 Intake Total 855 ml 1460 ml Balance 855 ml 1460 ml Intake Oral 480 ml 560 ml IV Total 375 ml 900 ml # Voids 2 4 Laboratory Tests 10/18/18 05:35: White Blood Count 3.5L, Red Blood Count 3.99L, Hemoglobin 11.4L, Hematocrit 34.7L, Mean Corpuscular Volume 87, Mean Corpuscular Hemoglobin 28.7, Mean Corpuscular Hemoglobin Concent 33.0, Red Cell Distribution Width 12.8, Platelet Count 172, Mean Platelet Volume 6.5, Neutrophils (%) (Auto) 73.6, Lymphocytes (% ) (Auto) 14.7L, Monocytes (%) (Auto) 8.7, Eosinophils (%) (Auto) 1.6, Basophils (%) (Auto) 1.4, Sodium Level 141, Potassium Level 3.5, Chloride Level 107, Carbon Dioxide Level 27, Anion Gap 7, Blood Urea Nitrogen 7, Creatinine 0.5L, Estimat Glomerular Filtration Rate , Glucose Level 107H, Calcium Level 8.8 Height (Feet): 5 Height (Inches): 4.00 Weight (Pounds): 111 General Appearance: alert, confused, agitated Abby Duffy MD Oct 18, 2018 15:02
--- NOTE | 2018-10-18 15:04 | NUR ---
*-* INSURANCE *-* ALL CLINICALS AND REVIEWS FAXED TO: IPA: [facility] ADMISSION REPORTED TO RACHELNatan [phone] AUTH#: PND NCM: PND F#: [phone]
--- NOTE | 2018-10-18 15:35 | NUR ---
nurse notes 1535with order discharge to ? per [facility] nurse patient will be discharge back to [facility] assisted living called [facility] tel no [phone], no answer, called CP NO, tel no [phone] spoke to farhana wilson daughter stated patient cant go back to the same place , patient very confused , cant take care of herself , had a fall in [place] , I spoke to site planner Sandra , awaiting for his call, [address] BREWER made aware regarding family concern , family refused patient to [facility], prefer patient to go to [facility] nurse and Nursing broommaking supervisor Shira marvin, Left message to Dr Little, patient not going to be discharge amaury herman Addendum: 10/18/18 at 1940 by CICI MORALES RN RN nurse notes 1535with order discharge to ? per [facility] nurse patient will be discharge back to [facility] assisted living called [facility] tel no [phone] to give report no answer , called [facility] tel no [phone], no answer, called CP NO, tel no [phone] spoke to farhana grand daughter stated patient cant go back to the same place , patient very confused , cant take care of herself , had a fall in [place] , I spoke to site planner Sandra , awaiting for his call, [address] Gia BREWER made aware regarding family concern , family refused [facility] back [facility], prefer patient to go to [facility] nurse and Nursing broommaking supervisor Shira marvin, Left message to Dr Little, patient not going to be discharge amaury herman
[2018-10-18 17:00] VITALS: BP 154/86
--- NOTE | 2018-10-18 19:41 | NUR ---
HAND-OFF: Report given to HECTOR MARTINEZ ENDORSED TO HECTOR JAIN ATTACHED TO CHART MICHELLE WADSWORTH.
--- NOTE | 2018-10-18 19:57 | NUR ---
NURSE NOTES: Received patient awake,verbal,confused,resting in bed,sitter at bedside.
[2018-10-18 20:00] VITALS: BP 104/55
--- NOTE | 2018-10-18 22:00 | NUR ---
NURSE NOTES: Wounds cleansed, dressings changed.
[2018-10-18] MEDS: LORazepam 1mg tab ORAL PRN (22:46)
[2018-10-19] VITALS: BP 121/64
[2018-10-19 04:00] VITALS: BP 124/76
--- NOTE | 2018-10-19 05:31 | Consultation ---
DATE OF CONSULTATION: 10/18/2018 CONSULTING PHYSICIAN: Jacque Lobo M.D. ATTENDING PHYSICIAN: Perfecto Forrest M.D. REFERRING PHYSICIAN: Perfecto Forrest M.D. REASON FOR CONSULTATION: Skin check. HISTORY OF PRESENT ILLNESS: This is a 73-year-old woman who has a history of dementia and recently admitted for confusion and agitation. The patient continually gets in and out of bed and is also constantly moving with waxing and waning of consciousness. PAST MEDICAL HISTORY: Encephalopathy and history of dementia. MEDICATIONS: Norvasc, donepezil, memantine, olanzapine, rifampin. REVIEW OF SYSTEMS: I was not able to obtain review of systems because it was difficult to elicit history from the patient; however, from the patient's chart and medical records, it appears:CONSTITUTIONAL: The patient has no recent weight loss or weight gain. HEENT: The patient has not been complaining of any ear, throat, or headache. CARDIOVASCULAR: The patient has no chest pain. CHEST: The patient also has no recent shortness of breath. NEUROMUSCULAR: She has no generalized weakness. PHYSICAL EXAMINATION: VITAL SIGNS: The patient is afebrile with stable vitals. GENERAL: She is well developed and well nourished. She is not in any acute distress; however, she was agitated, confused, and moving a lot. HEENT: Her extraocular movements are intact. EXTREMITIES: The patient has a small 1 x 1 cm abrasion on her left elbow. She also has extremely thin skin. SKIN: No other wound. ASSESSMENT: This is a 73-year-old woman with a history of dementia who moves a lot and is confused. She also has extremely thin skin. RECOMMENDATIONS: 1. I recommend protection of her arms since she is constantly moving and on observation, I saw her hitting her arms on the bed. 2. For the abrasion on her left elbow, I recommend antibiotic ointment covered with a clean dry dressing and also I recommend barrier cream on the buttocks area. 3. Weekly skin checks. Jacque Lobo M.D. DR: ANAI JOB#: [id number] CC: GAVINO
[2018-10-19] MEDS: Heparin 5000 units/ml inj SUBQ SCH ×3 (05:43→20:09)
[2018-10-19 06:43] LABS: BASOPHILS % (AUTO) 1.5 % (0.0-2.0); EOSINOPHILS % (AUTO) 2.2 % (0.0-3.0); HEMATOCRIT 40.6 % (37.0-47.0); HEMOGLOBIN 13.4 G/DL (12.0-16.0); LYMPHOCYTES % (AUTO) 23.6 % (20.0-45.0); MEAN CORPUSCULAR VOLUME 88 FL (80-99); MONOCYTES % (AUTO) 9.9 % (1.0-10.0); NEUTROPHILS % (AUTO) 62.7 % (45.0-75.0); PLATELET COUNT 210 K/UL (150-450); RED BLOOD COUNT 4.62 M/UL (4.20-5.40); RED CELL DISTRIBUTION WIDTH 13.4 % (11.6-14.8); WHITE BLOOD COUNT 4.1 K/UL (4.8-10.8)
[2018-10-19 06:49] LABS: ANION GAP 8 mmol/L (5-15); BLOOD UREA NITROGEN 7 mg/dL (7-18); CALCIUM 9.2 MG/DL (8.5-10.1); CARBON DIOXIDE 29 MMOL/L (21-32); CHLORIDE 104 MMOL/L (98-107); CREATININE 0.6 MG/DL (0.55-1.30); POTASSIUM 3.4 MMOL/L (3.5-5.1); SODIUM 141 MMOL/L (136-145)
--- NOTE | 2018-10-19 07:34 | NUR ---
HAND-OFF: Report given to Berta Huerta LVN.
--- NOTE | 2018-10-19 07:35 | Pulmonology Progress Note ---
Assessment/Plan Assessment/Plan ASSESSMENT Acute toxic metabolic encephalopathy (possibly medication induced) Dehydration HTN Alzheimer dementia PLAN OF CARE MS floor CT head negative Venous Duplex BLE negative O2 prn, pulse ox stable on RA pulm toilet prn IVF, monitor BP stable hemodynamic status BP management with CCB DVT prophylaxis psych follows , psych medications regimen optimized as per psych recs sitter at the bedside for safety dc planning case discussed and evaluated by supervising physician Subjective Allergies: Coded Allergies: No Known Allergies (Unverified , 10/09/18) Subjective sitter at the bedside awaiting for placement Objective Last 24 Hour Vital Signs Date Time Temp Pulse Resp B/P (MAP) Pulse Ox O2 Delivery O2 Flow Rate FiO2 10/19/18 04:00 97.3 79 18 124/76 (92) 99 10/19/18 00:00 97.8 74 18 121/64 (83) 99 10/18/18 21:00 Room Air 10/18/18 20:00 97.7 80 20 104/55 (71) 97 10/18/18 17:00 98.4 98 18 154/86 (108) 98 10/18/18 12:00 97.5 69 18 139/69 (92) 97 10/18/18 09:00 Room Air 10/18/18 08:58 65 140/69 10/18/18 08:00 97.3 73 18 134/73 (93) 97 Intake and Output 10/18/18 10/19/18 19:00 07:00 Intake Total 1695 ml 1215 ml Balance 1695 ml 1215 ml Intake Oral 760 ml 540 ml IV Total 935 ml 675 ml # Voids 2 5 General Appearance: no acute distress HEENT: normocephalic, mucous membranes moist Respiratory/Chest: lungs clear, no respiratory distress Cardiovascular: normal rate, no JVD Abdomen: normal bowel sounds, soft, non tender Extremities: no edema Neurologic/Psychiatric: abnormal gait, alert - confused Musculoskeletal: atrophy - BLE Laboratory Tests 10/19/18 05:45: White Blood Count 4.1L, Red Blood Count 4.62, Hemoglobin 13.4, Hematocrit 40.6, Mean Corpuscular Volume 88, Mean Corpuscular Hemoglobin 29.0, Mean Corpuscular Hemoglobin Concent 33.1, Red Cell Distribution Width 13.4, Platelet Count 210, Mean Platelet Volume 7.2, Neutrophils (%) (Auto) 62.7, Lymphocytes (%) (Auto) 23.6, Monocytes (%) (Auto) 9.9, Eosinophils (%) (Auto) 2.2, Basophils (%) (Auto ) 1.5, Sodium Level 141, Potassium Level 3.4L, Chloride Level 104, Carbon Dioxide Level 29, Anion Gap 8, Blood Urea Nitrogen 7, Creatinine 0.6, Estimat Glomerular Filtration Rate , Glucose Level 108H, Calcium Level 9.2 Current Medications Medications (Trade) Dose Ordered Sig/Elton Route PRN Reason Start Time Stop Time Status Last Admin Dose Admin Acetaminophen (Tylenol) 650 mg Q6H PRN ORAL Prn Pain/Headache/Temp > 101 10/11/18 00:30 11/10/18 00:29 Amlodipine Besylate (Norvasc) 2.5 mg DAILY ORAL 10/11/18 09:00 11/10/18 08:59 10/18/18 08:58 Clonazepam (KlonoPIN) 1 mg BEDTIME ORAL 10/15/18 21:00 10/22/18 20:59 10/18/18 21:23 Dextrose/Sodium Chloride 1,000 ml @ 75 mls/hr [id number] IV 10/11/18 00:45 11/10/18 00:44 10/18/18 21:23 Fluoxetine HCl (PROzac) 20 mg DAILY ORAL 10/15/18 12:15 11/14/18 12:14 10/18/18 08:58 Haloperidol Lactate (Haldol) 5 mg Q6H PRN IM Agitation 10/11/18 11:00 11/10/18 10:59 10/18/18 09:14 Heparin Sodium (Porcine) (Heparin 5000 units/ml) 5,000 units EVERY 8 HOURS SUBQ 10/11/18 14:00 11/10/18 13:59 10/19/18 05:43 Lorazepam (Ativan) 2 mg Q6H PRN ORAL For Anxiety 10/12/18 12:00 10/19/18 11:59 10/18/18 22:46 Olanzapine (ZyPREXA) 5 mg Q8HR ORAL 10/12/18 13:00 11/11/18 12:59 10/19/18 05:35 Radha Lanza NP Oct 19, 2018 07:35
--- NOTE | 2018-10-19 07:47 | NUR ---
NURSE NOTES: Received patient awake, verbal, mumbles in tanzanian, confused, constantly fidgetting in bed, siderails are up for safety, bed in the lowest position. consumed 100% breakfast. IVF infusing well. NO acute resp distress noted. sitter at bedside. will cont to monitor.
[2018-10-19 08:00] VITALS: BP 124/55
[2018-10-19] MEDS: LORazepam 1mg tab ORAL PRN ×2 (08:12→22:47)
[2018-10-19] MEDS: D5 1/2NS 1,000 ML IV SCH ×3 (08:13→20:19)
--- NOTE | 2018-10-19 10:00 | NUR ---
NURSE NOTES: Rayne aponte per order was given. jajater @ bedside. patient was agitated and restless. will cont to monitor. Addendum: 10/19/18 at 1619 by ESTRELLA SULTANA LVN assessed vital signs and kept HOB slightly elevated. monitor HR and breathing as well. will cont to monitor.
[2018-10-19 12:12] VITALS: BP 107/59
--- NOTE | 2018-10-19 13:31 | NUR ---
NURSE NOTES: made Dr Forrest know re: K+3.4 today's labs. awaiting for response. Addendum: 10/19/18 at 1552 by ESTRELLA SULTANA LVN obtained new order and administered. will cont to monitor.
[2018-10-19 16:00] VITALS: BP_SYST 124; BP_SYST 131; BP_DIAS 69; BP_DIAS 77
--- NOTE | 2018-10-19 16:43 | NUR ---
CASE MANAGEMENT: REVIEW SI: AMS . ACUTE TOXIC METABOLIC ENCEPHALOPATHY T 98.5 HR 74 RR 18 BP 124/55 SAT 97% ROOM AIR WBC 4.1 K 3.4 IS: D5 1/2 NS IVF @ 75ML/HR KLONOPIN PO QHS MED/SURG STATUS DCP: PATIENT IS FROM [facility]
--- NOTE | 2018-10-19 16:47 | NUR ---
CASE MANAGEMENT:DCPNOTE PER ORDER PATIENT REFERRED TO HINA WONG / REYNA ANNE RE[facility] [phone] OSMAN RODNEY F/U
--- NOTE | 2018-10-19 17:48 | Internal Med Progress Note ---
Subjective Date of Service: Oct 19, 2018 Physician Name Aristides Tenorio Attending Physician Perfecto Forrest MD Current Medications Medications (Trade) Dose Ordered Sig/Elton Route PRN Reason Start Time Stop Time Status Last Admin Dose Admin Acetaminophen (Tylenol) 650 mg Q6H PRN ORAL Prn Pain/Headache/Temp > 101 10/11/18 00:30 11/10/18 00:29 Amlodipine Besylate (Norvasc) 2.5 mg DAILY ORAL 10/11/18 09:00 11/10/18 08:59 10/19/18 08:13 Clonazepam (KlonoPIN) 1 mg BEDTIME ORAL 10/15/18 21:00 10/22/18 20:59 10/18/18 21:23 Dextrose/Sodium Chloride 1,000 ml @ 75 mls/hr [id number] IV 10/11/18 00:45 11/10/18 00:44 10/19/18 08:13 Fluoxetine HCl (PROzac) 20 mg DAILY ORAL 10/15/18 12:15 11/14/18 12:14 10/19/18 08:12 Haloperidol Lactate (Haldol) 5 mg Q6H PRN IM Agitation 10/11/18 11:00 11/10/18 10:59 10/18/18 09:14 Heparin Sodium (Porcine) (Heparin 5000 units/ml) 5,000 units EVERY 8 HOURS SUBQ 10/11/18 14:00 11/10/18 13:59 10/19/18 14:23 Olanzapine (ZyPREXA) 5 mg Q8HR ORAL 10/12/18 13:00 11/11/18 12:59 10/19/18 14:21 Allergies: Coded Allergies: No Known Allergies (Unverified , 10/09/18) ROS Limited/Unobtainable: Yes Subjective 73 YO F admitted with altered mental status. Cover for Int Med Dr Forrest. Await SNF placement Objective Last Vital Signs Date Time Temp Pulse Resp B/P (MAP) Pulse Ox O2 Delivery O2 Flow Rate FiO2 10/19/18 16:00 98.6 92 19 124/77 (93) 95 10/19/18 09:00 Room Air Laboratory Tests Test 10/19/18 05:45 White Blood Count 4.1 K/UL (4.8-10.8) L Red Blood Count 4.62 M/UL (4.20-5.40) Hemoglobin 13.4 G/DL (12.0-16.0) Hematocrit 40.6 % (37.0-47.0) Mean Corpuscular Volume 88 FL (80-99) Mean Corpuscular Hemoglobin 29.0 PG (27.0-31.0) Mean Corpuscular Hemoglobin Concent 33.1 G/DL (32.0-36.0) Red Cell Distribution Width 13.4 % (11.6-14.8) Platelet Count 210 K/UL (150-450) Mean Platelet Volume 7.2 FL (6.5-10.1) Neutrophils (%) (Auto) 62.7 % (45.0-75.0) Lymphocytes (%) (Auto) 23.6 % (20.0-45.0) Monocytes (%) (Auto) 9.9 % (1.0-10.0) Eosinophils (%) (Auto) 2.2 % (0.0-3.0) Basophils (%) (Auto) 1.5 % (0.0-2.0) Sodium Level 141 MMOL/L (136-145) Potassium Level 3.4 MMOL/L (3.5-5.1) L Chloride Level 104 MMOL/L (98-107) Carbon Dioxide Level 29 MMOL/L (21-32) Anion Gap 8 mmol/L (5-15) Blood Urea Nitrogen 7 mg/dL (7-18) Creatinine 0.6 MG/DL (0.55-1.30) Estimat Glomerular Filtration Rate mL/min (>60) Glucose Level 108 MG/DL (74-106) H Calcium Level 9.2 MG/DL (8.5-10.1) Intake and Output 10/18/18 10/19/18 19:00 07:00 Intake Total 1695 ml 1215 ml Balance 1695 ml 1215 ml Intake Oral 760 ml 540 ml IV Total 935 ml 675 ml # Voids 2 5 Objective PHYSICAL EXAMINATION: GENERAL: The patient is awake and arousable, however, cannot follow commands. HEAD AND NECK: Pupils are equal to light and anicteric. Neck was supple. No JVD. LUNGS: No wheeze or rhonchi. Decreased air in the bases. Poor inspiratory effort. HEART: S1 and S2. Distant heart sounds. No murmur or gallops. ABDOMEN: Soft, nondistended, and nontender. Positive bowel sounds. EXTREMITIES: No cyanosis, clubbing, or edema. NEUROLOGIC: Very limited secondary to the patient's status. The patient is moving all the extremities spontaneously, however, cannot follow commands. Assessment/Plan Assessment/Plan ASSESSMENT: 1. Altered mental status, most likely secondary to toxic encephalopathy as a result of medication induced. 2. Hypertension. 3. Severe agitation in the past. 4. Mild dehydration with prerenal azotemia. PLAN: 1. Admit the patient to medical floor. 2. We will follow up with psychiatry consultation with Dr. Abby Duffy. 3. We will follow up with Dr. Little recommendation. 4. IV hydration. 5. Code status is Full Code at this time. 6. We will monitor patient with one-to-one sitter. 7. DVT prophylaxis, heparin subcutaneous 8. Discharge planning: [facility] Await [facility] facility bed Aristides Tenorio MD Oct 19, 2018 17:48
--- NOTE | 2018-10-19 19:24 | NUR ---
HAND-OFF: Report given to Masha.
--- NOTE | 2018-10-19 19:42 | NUR ---
NURSE NOTES: Received patient in bed. On RA, no SOB, no acute distress. RFA IV intact, patent running fluids. Sitter by bedside. Bed in lowest position, locked, alarms on. Call light in reach.
[2018-10-19 20:00] VITALS: BP 108/54
[2018-10-19] MEDS ORDERED: 1/2 NS 1000ml IV ONE (20:07)
--- NOTE | 2018-10-19 20:15 | General Progress Note ---
Assessment/Plan Problem List: (1) Acute metabolic encephalopathy ICD Codes: G93.41 - Metabolic encephalopathy SNOMED: 04808419, 133490208 Assessment/Plan Zyprexa 5mg po tid Prozac 40mg Klonopin 1mg po qhs Haldol Im prn Ativan IM prn the pt lacks capacity to make decisions. script was given Subjective Neurologic/Psychiatric: Reports: anxiety Allergies: Coded Allergies: No Known Allergies (Unverified , 10/09/18) Subjective cont to be agitated cont to be confused not following command disorganized and delusional Objective Last 24 Hour Vital Signs Date Time Temp Pulse Resp B/P (MAP) Pulse Ox O2 Delivery O2 Flow Rate FiO2 10/19/18 20:00 98.2 78 18 108/54 (72) 99 10/19/18 16:00 98.6 92 19 124/77 (93) 95 10/19/18 12:12 98.5 74 18 107/59 (75) 100 10/19/18 09:00 Room Air 10/19/18 08:13 84 124/55 10/19/18 08:00 98.3 84 18 124/55 (78) 97 10/19/18 04:00 97.3 79 18 124/76 (92) 99 10/19/18 00:00 97.8 74 18 121/64 (83) 99 10/18/18 21:00 Room Air Intake and Output 10/18/18 10/19/18 19:00 07:00 Intake Total 1695 ml 1215 ml Balance 1695 ml 1215 ml Intake Oral 760 ml 540 ml IV Total 935 ml 675 ml # Voids 2 5 Laboratory Tests 10/19/18 05:45: White Blood Count 4.1L, Red Blood Count 4.62, Hemoglobin 13.4, Hematocrit 40.6, Mean Corpuscular Volume 88, Mean Corpuscular Hemoglobin 29.0, Mean Corpuscular Hemoglobin Concent 33.1, Red Cell Distribution Width 13.4, Platelet Count 210, Mean Platelet Volume 7.2, Neutrophils (%) (Auto) 62.7, Lymphocytes (%) (Auto) 23.6, Monocytes (%) (Auto) 9.9, Eosinophils (%) (Auto) 2.2, Basophils (%) (Auto ) 1.5, Sodium Level 141, Potassium Level 3.4L, Chloride Level 104, Carbon Dioxide Level 29, Anion Gap 8, Blood Urea Nitrogen 7, Creatinine 0.6, Estimat Glomerular Filtration Rate , Glucose Level 108H, Calcium Level 9.2 Height (Feet): 5 Height (Inches): 4.00 Weight (Pounds): 111 General Appearance: alert, agitated Abby Duffy MD Oct 19, 2018 20:15
[2018-10-20] VITALS: BP 121/63
[2018-10-20 04:00] VITALS: BP 111/57
[2018-10-20] MEDS: Heparin 5000 units/ml inj SUBQ SCH ×3 (06:30→21:03)
--- NOTE | 2018-10-20 07:15 | NUR ---
HAND-OFF: Report given to Esperanza MARTINEZ.
--- NOTE | 2018-10-20 07:31 | NUR ---
NURSE NOTES: Received patient in bed, resting and alert to name. No signs of respiratory distress, patient in room air. IV intact and patent. IV fluids running. Sitter at bedside. Bed in lowest position, call light within reach. Will continue to monitor.
[2018-10-20 08:00] VITALS: BP 129/58
--- NOTE | 2018-10-20 08:28 | Pulmonology Progress Note ---
Assessment/Plan Assessment/Plan ASSESSMENT Acute toxic metabolic encephalopathy (possibly medication induced) Dehydration HTN Alzheimer dementia PLAN OF CARE MS floor CT head negative Venous Duplex BLE negative O2 prn, pulse ox stable on RA pulm toilet prn IVF, monitor BP stable hemodynamic status BP management with CCB DVT prophylaxis psych follows , psych medications regimen optimized as per psych recs sitter at the bedside for safety dc planning, awaiting for placement case discussed and evaluated by supervising physician Subjective Allergies: Coded Allergies: No Known Allergies (Unverified , 10/09/18) Subjective sitter at the bedside awaiting for placement labs pending for this am Objective Last 24 Hour Vital Signs Date Time Temp Pulse Resp B/P (MAP) Pulse Ox O2 Delivery O2 Flow Rate FiO2 10/20/18 04:00 98.1 79 18 111/57 (75) 100 10/20/18 00:00 97.6 85 18 121/63 (82) 97 10/19/18 21:00 Room Air 10/19/18 20:00 98.2 78 18 108/54 (72) 99 10/19/18 16:00 98.6 92 19 124/77 (93) 95 10/19/18 12:12 98.5 74 18 107/59 (75) 100 10/19/18 09:00 Room Air Intake and Output 10/19/18 10/20/18 18:59 06:59 Intake Total 1110 ml 1273 ml Balance 1110 ml 1273 ml Intake Oral 360 ml 598 ml IV Total 750 ml 675 ml # Voids 2 3 # Bowel Movements 1 Objective General Appearance: no acute distress HEENT: normocephalic, mucous membranes moist Respiratory/Chest: lungs clear, no respiratory distress Cardiovascular: normal rate, no JVD Abdomen: normal bowel sounds, soft, non tender Extremities: no edema Neurologic/Psychiatric: abnormal gait, alert - confused Musculoskeletal: atrophy - BLE Current Medications Medications (Trade) Dose Ordered Sig/Elton Route PRN Reason Start Time Stop Time Status Last Admin Dose Admin Acetaminophen (Tylenol) 650 mg Q6H PRN ORAL Prn Pain/Headache/Temp > 101 10/11/18 00:30 11/10/18 00:29 Amlodipine Besylate (Norvasc) 2.5 mg DAILY ORAL 10/11/18 09:00 11/10/18 08:59 10/19/18 08:13 Clonazepam (KlonoPIN) 1 mg BEDTIME ORAL 10/15/18 21:00 10/22/18 20:59 10/19/18 20:07 Dextrose/Sodium Chloride 1,000 ml @ 75 mls/hr [id number] IV 10/11/18 00:45 11/10/18 00:44 10/19/18 20:19 Fluoxetine HCl (PROzac) 40 mg DAILY ORAL 10/20/18 09:00 11/19/18 08:59 Haloperidol Lactate (Haldol) 5 mg Q6H PRN IM Agitation 10/11/18 11:00 11/10/18 10:59 10/18/18 09:14 Heparin Sodium (Porcine) (Heparin 5000 units/ml) 5,000 units EVERY 8 HOURS SUBQ 10/11/18 14:00 11/10/18 13:59 10/20/18 06:30 Lorazepam (Ativan) 2 mg EVERY 6 HOURS PRN ORAL For Anxiety 10/19/18 22:45 10/26/18 22:44 10/19/18 22:47 Olanzapine (ZyPREXA) 7.5 mg Q8HR ORAL 10/20/18 06:00 11/19/18 05:59 10/20/18 06:26 Radha Lanza NP Oct 20, 2018 08:28
[2018-10-20] MEDS: LORazepam 1mg tab ORAL PRN ×3 (08:36→22:11)
[2018-10-20 11:15] LABS: BASOPHILS % (AUTO) 1.5 % (0.0-2.0); EOSINOPHILS % (AUTO) 2.5 % (0.0-3.0); HEMOGLOBIN 12.7 G/DL (12.0-16.0); LYMPHOCYTES % (AUTO) 28.6 % (20.0-45.0); MEAN CORPUSCULAR VOLUME 88 FL (80-99); MONOCYTES % (AUTO) 11.6 % (1.0-10.0); NEUTROPHILS % (AUTO) 55.8 % (45.0-75.0); PLATELET COUNT 199 K/UL (150-450); RED BLOOD COUNT 4.45 M/UL (4.20-5.40); RED CELL DISTRIBUTION WIDTH 13.3 % (11.6-14.8); WHITE BLOOD COUNT 3.8 K/UL (4.8-10.8)
[2018-10-20 11:31] LABS: ANION GAP 6 mmol/L (5-15); BLOOD UREA NITROGEN 8 mg/dL (7-18); CALCIUM 9.2 MG/DL (8.5-10.1); CARBON DIOXIDE 28 MMOL/L (21-32); CHLORIDE 107 MMOL/L (98-107); CREATININE 0.5 MG/DL (0.55-1.30); POTASSIUM 3.9 MMOL/L (3.5-5.1); SODIUM 141 MMOL/L (136-145)
[2018-10-20] MEDS: D5 1/2NS 1,000 ML IV SCH (11:35)
[2018-10-20 12:00] VITALS: BP 139/72
--- NOTE | 2018-10-20 15:36 | Internal Med Progress Note ---
Subjective Date of Service: Oct 20, 2018 Physician Name Aristides Tenorio Attending Physician Perfecto Forrest MD Current Medications Medications (Trade) Dose Ordered Sig/Elton Route PRN Reason Start Time Stop Time Status Last Admin Dose Admin Acetaminophen (Tylenol) 650 mg Q6H PRN ORAL Prn Pain/Headache/Temp > 101 10/11/18 00:30 11/10/18 00:29 Amlodipine Besylate (Norvasc) 2.5 mg DAILY ORAL 10/11/18 09:00 11/10/18 08:59 10/20/18 08:37 Clonazepam (KlonoPIN) 1 mg BEDTIME ORAL 10/15/18 21:00 10/22/18 20:59 10/19/18 20:07 Dextrose/Sodium Chloride 1,000 ml @ 75 mls/hr [id number] IV 10/11/18 00:45 11/10/18 00:44 10/20/18 11:35 Fluoxetine HCl (PROzac) 40 mg DAILY ORAL 10/20/18 09:00 11/19/18 08:59 10/20/18 08:36 Haloperidol Lactate (Haldol) 5 mg Q6H PRN IM Agitation 10/11/18 11:00 11/10/18 10:59 10/18/18 09:14 Heparin Sodium (Porcine) (Heparin 5000 units/ml) 5,000 units EVERY 8 HOURS SUBQ 10/11/18 14:00 11/10/18 13:59 10/20/18 14:31 Lorazepam (Ativan) 2 mg EVERY 6 HOURS PRN ORAL For Anxiety 10/19/18 22:45 10/26/18 22:44 10/20/18 14:28 Olanzapine (ZyPREXA) 7.5 mg Q8HR ORAL 10/20/18 06:00 11/19/18 05:59 10/20/18 14:29 Allergies: Coded Allergies: No Known Allergies (Unverified , 10/09/18) ROS Limited/Unobtainable: Yes Subjective 73 YO F admitted with altered mental status. Cover for Int Med Dr Forrest. Await SNF placement Objective Last Vital Signs Date Time Temp Pulse Resp B/P (MAP) Pulse Ox O2 Delivery O2 Flow Rate FiO2 10/20/18 12:00 98.4 80 22 139/72 (94) 97 10/20/18 09:00 Room Air Laboratory Tests Test 10/20/18 10:45 White Blood Count 3.8 K/UL (4.8-10.8) L Red Blood Count 4.45 M/UL (4.20-5.40) Hemoglobin 12.7 G/DL (12.0-16.0) Hematocrit 39.0 % (37.0-47.0) Mean Corpuscular Volume 88 FL (80-99) Mean Corpuscular Hemoglobin 28.6 PG (27.0-31.0) Mean Corpuscular Hemoglobin Concent 32.7 G/DL (32.0-36.0) Red Cell Distribution Width 13.3 % (11.6-14.8) Platelet Count 199 K/UL (150-450) Mean Platelet Volume 7.0 FL (6.5-10.1) Neutrophils (%) (Auto) 55.8 % (45.0-75.0) Lymphocytes (%) (Auto) 28.6 % (20.0-45.0) Monocytes (%) (Auto) 11.6 % (1.0-10.0) H Eosinophils (%) (Auto) 2.5 % (0.0-3.0) Basophils (%) (Auto) 1.5 % (0.0-2.0) Sodium Level 141 MMOL/L (136-145) Potassium Level 3.9 MMOL/L (3.5-5.1) Chloride Level 107 MMOL/L (98-107) Carbon Dioxide Level 28 MMOL/L (21-32) Anion Gap 6 mmol/L (5-15) Blood Urea Nitrogen 8 mg/dL (7-18) Creatinine 0.5 MG/DL (0.55-1.30) L Estimat Glomerular Filtration Rate mL/min (>60) Glucose Level 112 MG/DL (74-106) H Calcium Level 9.2 MG/DL (8.5-10.1) Intake and Output 10/19/18 10/20/18 19:00 07:00 Intake Total 1110 ml 1273 ml Balance 1110 ml 1273 ml Intake Oral 360 ml 598 ml IV Total 750 ml 675 ml # Voids 2 3 # Bowel Movements 1 Objective PHYSICAL EXAMINATION: GENERAL: The patient is awake and arousable, however, cannot follow commands. HEAD AND NECK: Pupils are equal to light and anicteric. Neck was supple. No JVD. LUNGS: No wheeze or rhonchi. Decreased air in the bases. Poor inspiratory effort. HEART: S1 and S2. Distant heart sounds. No murmur or gallops. ABDOMEN: Soft, nondistended, and nontender. Positive bowel sounds. EXTREMITIES: No cyanosis, clubbing, or edema. NEUROLOGIC: Very limited secondary to the patient's status. The patient is moving all the extremities spontaneously, however, cannot follow commands. Assessment/Plan Assessment/Plan ASSESSMENT: 1. Altered mental status, most likely secondary to toxic encephalopathy as a result of medication induced. 2. Hypertension. 3. Severe agitation in the past. 4. Mild dehydration with prerenal azotemia. PLAN: 1. Admit the patient to medical floor. 2. We will follow up with psychiatry consultation with Dr. Abby Duffy. 3. We will follow up with Dr. Little recommendation. 4. IV hydration. 5. Code status is Full Code at this time. 6. We will monitor patient with one-to-one sitter. 7. DVT prophylaxis, heparin subcutaneous 8. Discharge planning: [facility]. Await [facility] bed Aristides Tenorio MD Oct 20, 2018 15:36
[2018-10-20 16:00] VITALS: BP 130/78
--- NOTE | 2018-10-20 19:46 | NUR ---
HAND-OFF: Report given to MICHELLE Flanagan.
[2018-10-20 20:00] VITALS: BP 111/76
--- NOTE | 2018-10-20 20:00 | NUR ---
NURSE NOTES: Received patient in bed. On RA, no SOB, no acute distress. LFA IV intact, patent, running fluids. Bed in lowest position, locked, alarms on. Call light in reach. Still agitated, sitter by bedside.
--- NOTE | 2018-10-20 23:45 | General Progress Note ---
Assessment/Plan Problem List: (1) Acute metabolic encephalopathy ICD Codes: G93.41 - Metabolic encephalopathy SNOMED: 91116413, [id number] Assessment/Plan Zyprexa 5mg po tid Prozac 40mg Klonopin 1mg po qhs Haldol Im prn Ativan IM prn the pt lacks capacity to make decisions. script was given Subjective Neurologic/Psychiatric: Reports: anxiety, depressed, emotional problems Allergies: Coded Allergies: No Known Allergies (Unverified , 10/09/18) Subjective cont to be agitated cont to be confused not following command disorganized and delusional Objective Last 24 Hour Vital Signs Date Time Temp Pulse Resp B/P (MAP) Pulse Ox O2 Delivery O2 Flow Rate FiO2 10/20/18 21:00 Room Air 10/20/18 20:00 97.1 72 20 111/76 (88) 96 10/20/18 16:00 98.0 64 20 130/78 (95) 98 10/20/18 12:00 98.4 80 22 139/72 (94) 97 10/20/18 09:00 Room Air 10/20/18 08:37 98 129/58 10/20/18 08:00 98.2 98 20 129/58 (81) 97 10/20/18 04:00 98.1 79 18 111/57 (75) 100 10/20/18 00:00 97.6 85 18 121/63 (82) 97 Intake and Output 10/19/18 10/20/18 19:00 07:00 Intake Total 1110 ml 1273 ml Balance 1110 ml 1273 ml Intake Oral 360 ml 598 ml IV Total 750 ml 675 ml # Voids 2 3 # Bowel Movements 1 Laboratory Tests 10/20/18 10:45: White Blood Count 3.8L, Red Blood Count 4.45, Hemoglobin 12.7, Hematocrit 39.0, Mean Corpuscular Volume 88, Mean Corpuscular Hemoglobin 28.6, Mean Corpuscular Hemoglobin Concent 32.7, Red Cell Distribution Width 13.3, Platelet Count 199, Mean Platelet Volume 7.0, Neutrophils (%) (Auto) 55.8, Lymphocytes (%) (Auto) 28.6, Monocytes (%) (Auto) 11.6H, Eosinophils (%) (Auto) 2.5, Basophils (%) ( Auto) 1.5, Sodium Level 141, Potassium Level 3.9, Chloride Level 107, Carbon Dioxide Level 28, Anion Gap 6, Blood Urea Nitrogen 8, Creatinine 0.5L, Estimat Glomerular Filtration Rate , Glucose Level 112H, Calcium Level 9.2 Height (Feet): 5 Height (Inches): 4.00 Weight (Pounds): 111 Abby Duffy MD Oct 20, 2018 23:45
[2018-10-21] VITALS: BP 107/66
[2018-10-21] MEDS: D5 1/2NS 1,000 ML IV SCH ×2 (00:45→14:05)
[2018-10-21 04:00] VITALS: BP 148/81
[2018-10-21] MEDS: Heparin 5000 units/ml inj SUBQ SCH ×2 (05:12→13:27)
[2018-10-21] MEDS: LORazepam 1mg tab ORAL PRN ×2 (05:54→11:21)
[2018-10-21 07:12] LABS: BASOPHILS % (AUTO) 1.2 % (0.0-2.0); EOSINOPHILS % (AUTO) 3.5 % (0.0-3.0); HEMATOCRIT 36.3 % (37.0-47.0); HEMOGLOBIN 12.1 G/DL (12.0-16.0); LYMPHOCYTES % (AUTO) 32.2 % (20.0-45.0); MEAN CORPUSCULAR VOLUME 87 FL (80-99); MONOCYTES % (AUTO) 12.6 % (1.0-10.0); NEUTROPHILS % (AUTO) 50.6 % (45.0-75.0); PLATELET COUNT 173 K/UL (150-450); RED BLOOD COUNT 4.17 M/UL (4.20-5.40); RED CELL DISTRIBUTION WIDTH 13.5 % (11.6-14.8); WHITE BLOOD COUNT 3.9 K/UL (4.8-10.8)
[2018-10-21 07:34] LABS: ANION GAP 7 mmol/L (5-15); BLOOD UREA NITROGEN 9 mg/dL (7-18); CALCIUM 9.4 MG/DL (8.5-10.1); CARBON DIOXIDE 28 MMOL/L (21-32); CHLORIDE 106 MMOL/L (98-107); CREATININE 0.6 MG/DL (0.55-1.30); POTASSIUM 4.3 MMOL/L (3.5-5.1); SODIUM 141 MMOL/L (136-145)
--- NOTE | 2018-10-21 08:01 | NUR ---
NURSE NOTES: Patient received, resting in bed. Breathing unlabored on room air. No signs of respiratory distress or pain observed. IV site patent and intact, fluids running. Bed locked in low position, sitter by the bedside. Will continue to monitor.
[2018-10-21 08:13] VITALS: BP 127/68
--- NOTE | 2018-10-21 11:36 | NUR ---
RD ASSESSMENT & RECOMMENDATIONS SEE CARE ACTIVITY FOR COMPLETE ASSESSMENT DAILY ESTIMATED NEEDS: Needs based on Wounds/ 51kg 25-30 kcals/kg 2996-8501 total kcals 1.25-1.5 g protein/kg 64-76 g total protein 25-30 mL/kg 6335-4883 total fluid mLs NUTRITION DIAGNOSIS: Increased kcal/prot needs R/T wound healing as evidenced by rt elbow redness and lt elbow open wound per photos. CURRENT DIET: REGULAR, mech soft chopped PO DIET RECOMMENDATIONS: REGULAR/ texture as tolerated or per [employer] OPERATOR ADDITIONAL RECOMMENDATIONS: * Calibrated bedscale wt for accurate CBW Conflicting wts-> EMR dw=[id number], bedscale wt on 10/154=234fer. * Wound healing: rec wound evaluation : add MVI x 1, Vit C 250mg QD, Raphael 1pkT BID * Consider [employer] OPERATOR eval for appropriate texture -> currently on chopped texture * Rec to add Ensure qdaily to better meet est needs w/ variable po intake
[2018-10-21 11:54] VITALS: BP 129/76
--- NOTE | 2018-10-21 14:15 | NUR ---
*-* DISCHARGE PLANNING *-* PATIENT HAS BEEN REFERRED TO: [facility] P: [phone] F: [phone] & [facility] P:[phone] F: [phone] F: [phone]
--- NOTE | 2018-10-21 14:17 | NUR ---
NURSE NOTES: Patient discharged to [facility] accompanied by ambulance personnel. IV site safely removed, covered with gauze and tape. Belongings reviewed and confirmed, given to ambulance personnel. Report given to Sandy MARTINEZ. Patient in stable condition, breathing unlabored on room air.
--- NOTE | 2018-10-21 14:48 | NUR ---
*-* DISCHARGE PLANNING *-* PATIENT IS DISCHARGED TO: [facility] ROOM# 10-B SKILLED T:[phone] FOR NURSE TO NURSE REPORT [facility] HAS BEEN ARRANGED FOR SENIOR SOFTWARE DEVELOPMENT MANAGER AT 15[address] ERICK [id number]
--- NOTE | 2018-10-21 16:08 | Pulmonology Progress Note ---
Assessment/Plan Problems: (1) Acute delirium (2) Encephalopathy acute (3) History of hypertension (4) Alzheimer's dementia Assessment/Plan too lethargic now. doing better more awake no new complains improving asymptomatic pt/ot symptomatic treatment f/u psych recommendations Subjective ROS Limited/Unobtainable: No Constitutional: Reports: no symptoms HEENT: Repors: no symptoms Allergies: Coded Allergies: No Known Allergies (Unverified , 10/09/18) Objective Last 24 Hour Vital Signs Date Time Temp Pulse Resp B/P (MAP) Pulse Ox O2 Delivery O2 Flow Rate FiO2 10/21/18 11:54 97.9 89 19 129/76 (93) 98 10/21/18 09:00 Room Air 10/21/18 08:16 92 127/68 10/21/18 08:13 98.1 92 19 127/68 (87) 97 10/21/18 04:00 98.3 94 20 148/81 (103) 97 10/21/18 00:00 97.9 74 18 107/66 (80) 99 10/20/18 21:00 Room Air 10/20/18 20:00 97.1 72 20 111/76 (88) 96 Intake and Output 10/20/18 10/21/18 19:00 07:00 Intake Total 575 ml 1115 ml Balance 575 ml 1115 ml Intake Oral 500 ml 290 ml IV Total 75 ml 825 ml # Voids 3 3 # Bowel Movements 1 3 Objective General Appearance: WD/WN, no acute distress HEENT: normocephalic, atraumatic Respiratory/Chest: chest wall non-tender Breasts: no masses Cardiovascular: normal peripheral pulses Abdomen: normal bowel sounds Genitourinary: normal external genitalia Skin: no rash Laboratory Tests 10/21/18 05:00: White Blood Count 3.9L, Red Blood Count 4.17L, Hemoglobin 12.1, Hematocrit 36.3L , Mean Corpuscular Volume 87, Mean Corpuscular Hemoglobin 29.0, Mean Corpuscular Hemoglobin Concent 33.3, Red Cell Distribution Width 13.5, Platelet Count 173, Mean Platelet Volume 7.1, Neutrophils (%) (Auto) 50.6, Lymphocytes (% ) (Auto) 32.2, Monocytes (%) (Auto) 12.6H, Eosinophils (%) (Auto) 3.5H, Basophils (%) (Auto) 1.2, Sodium Level 141, Potassium Level 4.3, Chloride Level 106, Carbon Dioxide Level 28, Anion Gap 7, Blood Urea Nitrogen 9, Creatinine 0.6 , Estimat Glomerular Filtration Rate , Glucose Level 87, Calcium Level 9.4 Current Medications Medications (Trade) Dose Ordered Sig/Elton Route PRN Reason Start Time Stop Time Status Last Admin Dose Admin Acetaminophen (Tylenol) 650 mg Q6H PRN ORAL Prn Pain/Headache/Temp > 101 10/11/18 00:30 11/10/18 00:29 Amlodipine Besylate (Norvasc) 2.5 mg DAILY ORAL 10/11/18 09:00 11/10/18 08:59 10/21/18 08:16 Clonazepam (KlonoPIN) 1 mg BEDTIME ORAL 10/15/18 21:00 10/22/18 20:59 10/20/18 20:58 Dextrose/Sodium Chloride 1,000 ml @ 75 mls/hr [id number] IV 10/11/18 00:45 11/10/18 00:44 10/20/18 11:35 Fluoxetine HCl (PROzac) 40 mg DAILY ORAL 10/20/18 09:00 11/19/18 08:59 10/21/18 08:16 Haloperidol Lactate (Haldol) 5 mg Q6H PRN IM Agitation 10/11/18 11:00 11/10/18 10:59 10/18/18 09:14 Heparin Sodium (Porcine) (Heparin 5000 units/ml) 5,000 units EVERY 8 HOURS SUBQ 10/11/18 14:00 11/10/18 13:59 10/21/18 13:27 Lorazepam (Ativan) 2 mg EVERY 6 HOURS PRN ORAL For Anxiety 10/19/18 22:45 10/26/18 22:44 10/21/18 11:21 Olanzapine (ZyPREXA) 7.5 mg Q8HR ORAL 10/20/18 06:00 11/19/18 05:59 10/21/18 13:20 Elmer Little MD Oct 21, 2018 16:08
--- NOTE | 2018-10-21 16:36 | NUR ---
*-* INSURANCE *-* UPDATED CLINICALS AND REVIEWS FAXED TO: IPA: [facility] ADMISSION REPORTED TO RACHELNatan [phone] AUTH#: PND NCM: [place] F#: [phone]
--- NOTE | 2018-10-21 17:41 | NUR ---
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 UNABLE TO PROVIDE FOR PT AT HOME. SNF REQUESTED. SPOKE WITH ALYSSA FROM [facility] ACCEPTING PT. NOTIFY ARG AUTHORIZATION GIVEN. PT TO DC TO [facility]. SPOKE WITH PT'S MOTHER EARLIER REQUESTING SNF MADE AWARE I WILL NOTIFY INSURANCE FOR CONTRACTED LIST. LEFT MESSAGE ON [phone] WITH ADDRESS AND CONTACT INFORMATION FOR [facility].
--- NOTE | 2018-10-22 10:31 | Diagnostic Imaging Report ---
APPROVED REPORT CPT Code: 43422 Present Symptoms Lower Extremity Pain: Lower Extremity Edema: BILATERAL: Imaging reveals a patent deep venous system bilaterally. There is no evidence of thrombus within the common femoral, superficial femoral, popliteal or tibial segments. The greater saphenous veins are within normal limits. Doppler indicates normal spontaneous flow within these segments.
--- NOTE | 2018-10-22 12:16 | Discharge Summary ---
Discharge Summary Discharge Summary _ DATE OF ADMISSION :10/10/2018 DATE OF DISCHARGE: 10/21/2018 DISCHARGED BY: Dr. Forrest REASON FOR ADMISSION: 73 years old female with past medical history of hypertension, Alzheimer dementia, presented to the hospital from assisted living , being more confused and agitated. Patient was unable to follow commands. Patient was unable to provide any history. No suicidal or homicidal ideation. Shortly after initial evaluation in emergency department patient was admitted to the hospital with altered mental status possibly due to toxic metabolic encephalopathy as a result of the medication induced. CONSULTANTS: pulmonary Dr. Little psychiatrist plastic surgeon Dr. Herrera [facility] COU[facility]SE: Patient admitted to medical surgical floor. Psychiatric evaluation requested. Patient started on the IV hydration. Patient was provided with a sitter for safety. CT of the head revealed no evidence of acute intracranial pathology. Venous duplex bilateral lower extremity revealed no evidence of acute DVT. Supplemental oxygen was on board as needed. Pulse oximetry was stable on room air. Pulmonary toilet provided as needed. Patient was on IV hydration . Hemodynamic status remained stable. Blood pressure was managed with calcium channel charles. DVT prophylaxis provided. Psychiatrist closely followed. Psychiatric medication regimen was optimized as per psychiatrist. Renal parameters and electrolytes were closely monitored. Electrolytes corrected as needed. Nephrotoxins were avoided. BUN from 19 down to 9. Plastic surgeon seen the patient and provided recommendation to avoid skin breakdown. Mental status stabilized with current psychiatric medication regimen. Family did not want patient to return to the same facility. Placement was challenging , but finally placement was found and secured at [facility]. Patient subsequently was transferred via ambulance to long-term facility for continuation of care. FINAL DIAGNOSES: Acute toxic metabolic encephalopathy , possibly medication induced Dehydration Hypertension Alzheimer dementia DISCHARGE MEDICATIONS: See Medication Reconciliation list. DISCHARGE INSTRUCTIONS: Patient was discharged to the long-term facility/[facility]. Follow up with medical doctor at the facility. I have been assigned to dictate discharge summary for this account. I was not involved in the patient's management. Radha Lanza NP Oct 22, 2018 12:15
== END 2018-10-21 16:45 | DRG 93 ==
LOC: EDBD 20:27 → EMR 21:00 → 4E 23:59 → EDBEDREQ 10-11 00:16 → 4E 10-11 03:08
DX: G92 Toxic encephalopathy (principal); T50.905A Adverse effect of unspecified drugs, medicaments and biological substances, initial encounter; Y92.9 Unspecified place or not applicable; E86.0 Dehydration; I10 Essential (primary) hypertension; G30.9 Alzheimer's disease, unspecified; F02.80 Dementia in other diseases classified elsewhere, unspecified severity, without behavioral disturbance, psychotic disturbance, mood disturbance, and anxiety; R45.1 Restlessness and agitation; Z91.81 History of falling; S50.312A Abrasion of left elbow, initial encounter; X58.XXXA Exposure to other specified factors, initial encounter
CPT/HCPCS: 36415; 70450; 80048; 80053; 81001; 82962; 83735; 84100; 84484; 85025; 87081; 93970; 96360; 99285; J8499